=== PATIENT | male | born 1955 | race Caucasian/White ===

== ENCOUNTER → 2021-04-21 12:39 | Outpatient (BNVA) | payer MEDICARE, SELFPAY | PROVIDERS: Visit Provider Surgery | DX: K42.9 Umbilical hernia without obstruction or gangrene (principal); Z20.822 Contact with and (suspected) exposure to COVID-19 | CPT/HCPCS: 87635 ==

== ENCOUNTER 2021-04-25 07:40 | Day surgery (SDC) | payer MEDICARE, SELFPAY ==
[2021-04-24 16:12] VITALS: BMI 37.8
[2021-04-25] VITALS (16 sets, daily range): BP systolic 109–156; BP diastolic 60–84; PULSE 85–97; RESP 6–22; TEMP 36.5–37.2; O2SAT 90–100
[2021-04-25] MEDS: sodium chloride 0.9% 1,000 ML 30 ML IV (08:13)
[2021-04-25] MEDS: acetaminophen 1,000 MG/100 ML PIGGYBACK 400 MG IV (08:14)
[2021-04-25] MEDS: heparin 5,000 unit/mL INJ 1 mL 3000 UNIT SUBCUT (08:18)
[2021-04-25 08:25] LABS: Glucose Point of Care 105 mg/dL (70-110)
--- NOTE | 2021-04-25 11:01 | W.PM.OPSUD ---
Surgery/Procedure H&P Update DATE OF PROCEDURE: April 25, 2021 DATE H&P PERFORMED: 04/03/21 H&P UPDATE INFORMATION: I have reviewed H&P completed within last 30 days, I have examined patient prior to procedure and Changes to prior documentation as noted here CHANGES TO PREVIOUS DOCUMENTATION: We will plan to proceed with open umbilical hernia repair with possible mesh placement giving the fact that the cystic lesion likely attached to the bellybutton hernia the hernia defect is not large. Patient agreed on the plan of care PREOP DIAGNOSIS: Umbilical hernia PRIMARY INDICATION FOR PROCEDURE: The same PLANNED PROCEDURE: Operation Date: 04/25/21 09:00 Proposed Procedures p Laparoscopic poss Open Umbilical Hernia Repair w/ poss Mesh [id number] K42.9(Not Applicable) - Colin Snow MD
--- NOTE | 2021-04-25 12:45 | ANES.PREANE2 ---
Pre-Anesthetic Assessment Pre-Anesthetic Assessment: Height/Weight: Height 1.78 m Weight 119.748 kg Temp Pulse Resp BP Pulse Ox 97.7 F 85 18 137/72 95 04/25/21 07:54 04/25/21 07:54 04/25/21 07:54 04/25/21 07:54 04/25/21 07:54 Preop Diagnosis: Umbilical hernia Proposed Procedure: Operation Date: 04/25/21 09:00 Proposed Procedures p Laparoscopic poss Open Umbilical Hernia Repair w/ poss Mesh [id number] K42.9(Not Applicable) - Colin Snow MD Was Beta Sandhya taken within 24 hours: N/A Was Clonidine taken within 24 hours: N/A Last intake: Intake Last Liquid Date 04/24/21 Last Liquid Time 22:00 Last Solid Date 04/24/21 Last Solid Time 18:00 Social: Social History: No alcohol and No tobacco Exam: Pre-Anes Outpt Exam: alert, oriented x 3, clear to auscultation bilaterally and regular rate & rhythm Airway: Submandibular: WNL Cervical ROM: WNL Dentition: Chipped and False (upper) CV/HEM: CV/HEM: Arrythmia and HTN GI: GI: GERD Metabolic: Metabolic: DM, Hyperlipidemia and Morbid obesity Anesthetic Plan: ASA status: 3 Anesthesia: General Meds/Allergies Current Medications: Current Medications Generic Name Dose Route Start Last Admin Trade Name Freq PRN Reason Stop Dose Admin Sodium Chloride 1,000 mls @ 30 ml s/hr 04/25/21 08:00 04/25/21 08:13 Sodium Chloride 0.9% IV 04/26/21 07:59 30 mls/hr .Q24H ENMA Administration PFSH Anesthesia PFSH: Family History Mother Diabetes Father Cancer Social History Smoking and tobacco status: former smoker Data Anesthesia Other Labs: Laboratory Results - last 48 hr 04/25/21 08:20 POC Glucose 105 Cardiac Studies: No Data to Display
[2021-04-25] MEDS: clindamycin 900 MG/50 ML PREMIX 100 MG IV (13:02)
[2021-04-25] MEDS: lidocaine 2% INJ 20 mL INJECTION (13:05)
--- NOTE | 2021-04-25 13:27 | P.OP_ITS ---
Operative Report Date of procedure: April 25, 2021 Pre-op Diagnosis: Umbilical hernia Post-op diagnosis: same Post-op Findings: Incarcerated umbilical hernia and presence of umbilical cyst Procedure Done: 1-Open umbilical hernia repair primarily 2-Excision of Intraabdominal umbilical ATTACHED cyst about 2 x 2 centimeters with serous fluid Specimens removed/disposition: Umbilical hernia sac and contents Umbilical/abdominal cyst attached to the umbilical hernia 2 x 2 centimeter Surgeon: Colin Snow Air Conditioning Sheet Metal Installer: Surgical techimtiaz Cortez LG and Aylin Circulating nurse Erin Anesthesia: General (GETA METAL DEALER Ash) Estimated blood loss (mL): 10 IV fluids (mL): 1,000 Condition: stable Disposition: same day Procedure: Patient was identified in holding area and the site of the hernia was marked by me ,Patient was brought then to the operating room, general endotracheal anesthesia was administered by the anesthesia provider.prophylactic IV antibiotics were given per protocol Timeout was done verifying the patient's name/date of /planned procedure and destination after the procedure, all were in agreement. SCDs confirmed to be functioning, preoperative antibiotics administered per protocol, and beta roberto protocol was confirmed. Patient was secured to the OR table and all pressure points were padded.Prep and drape of the abdomen was done under the usual sterile technique. I started by infraumbilical skin incision. I was able to identify the incarcerated umbilical hernia, dissection was carried all the way down to the fascia, hernia sac was then opened and the sac was excised in addition to excess omental tissues. Tissues excise sent for permanent pathology. Noticed to have a cyst within the omental tissues about 2 x 2 centimeter at have serous fluid within. I dissected separately and sent it out for permanent pathology,the remaining of the omentum was dropped inside the abdominal cavity. I was able to free the overlying fat on top of the fascia, facilitate primary closure At that point the fascial defect was about one and a half inches in diameter, after freeing all the adhesions, under direct visualization I was able to use #1 PDS to repair the defect primarily, as an interrupted [id number] sutures, thorough irrigation of the wound was then achieved and hemostasis. I elected not to put any mesh at this time concerning for potential infection of the associated cyst. Copious and thorough irrigation was done. Following that 2-0 Vicryl was used to deep dermal interrupted stitches,then 4-0 Monocryl was used for subcuticular closure of the skin incision. Lidocaine 2% was used for local infiltration to help postoperative pain.Dermabond was then applied,followed by an abdominal binder. Counts of sponges,needles and instruments were completed at the end of the procedure Patient tolerated the procedure well and was taken to the recovery area in stable condition I was present for the whole entire procedure
--- NOTE | 2021-04-25 13:45 | PM.PACU ---
Documented by User: Napoleon Wilkerson CRNA 04/25/21 13:45 PACU note PACU note: VSS, Good respiratory effort, report to ASSISTANT IN NURSING Post-Anesthesia Exam: awake
[2021-04-25] MEDS: fentaNYL 50 mcg/mL INJ 2mL IVP (14:02)
--- NOTE | 2021-04-25 14:34 | SUR.PHASEI ---
1336 PT TO PACU SLEEPY WITH WEAK RESP EFFOT, GULPING RESP MANULAL ASSIST TO AIRWAY, PT SATS IN 70'S PT BAGGED BY NAHUM HOLDEN SATS QUICKLY UP TO 90% SEE SUGAMADEX GVIEN IVP BY TECHNICAL TRAINING COORDINATOR. 1426 PT AWAKE ALERT DENIES PAIN AND VSS PT REQUESTS SODA AND CRACKERS, VSS PT TO OPS.
--- NOTE | 2021-04-25 14:42 | ANE.PACU2 ---
Inpatient post-anesthesia follow up: Airway intact: Yes Vital signs: Temperature 98.1 F Pulse Rate 91 Respiratory Rate 18 Blood Pressure 123/60 Pulse Oximetry 94 Oxygen Delivery Me thod Nasal Cannula Oxygen Flow Rate 2 Fraction of Inspir ed Oxygen Hydration adequate: Yes Nausea and vomiting: No Pain level: 2 Mental status: Baseline
[2021-04-25] MEDS: oxyCODONE-APAP 5-325 mg Tablet 1 TAB PO (15:01)
== END 2021-04-25 15:30 | disposition home or self-care (01) ==
PROVIDERS: PCP Nurse Practitioner Family; Visit Provider Surgery
PROC: 0WQF4ZZ Repair Abdominal Wall, Percutaneous Endoscopic Approach (ICD-10-PCS; CPT 22902; principal; 2021-04-25 08:50)
DX: K42.0 Umbilical hernia with obstruction, without gangrene (principal); R19.05 Periumbilic swelling, mass or lump; I10 Essential (primary) hypertension; Z87.891 Personal history of nicotine dependence; E78.5 Hyperlipidemia, unspecified
CPT/HCPCS: 22902; 49587; 36416; 82962; 88302; 88304; J1100; J1644; J2405; J2704; J2710; J3010; J3490; J7030

== ENCOUNTER → 2021-07-03 14:40 | Outpatient (BNVA) | payer MEDICARE, SELFPAY | PROVIDERS: PCP Nurse Practitioner Family; Visit Provider Family Medicine | DX: Z13.220 Encounter for screening for lipoid disorders; Z13.6 Encounter for screening for cardiovascular disorders; E11.9 Type 2 diabetes mellitus without complications; I10 Essential (primary) hypertension; F32.A Depression, unspecified; J44.9 Chronic obstructive pulmonary disease, unspecified | CPT/HCPCS: 80053; 80061; 83036; 85025 ==

== ENCOUNTER 2021-09-05 17:28 | Observation (INO) | payer MEDICARE, SELFPAY ==
[2021-09-05 17:39] VITALS: BP 158/98; PULSE 86; RESP 22; TEMP 36.6; O2SAT 98; BMI 34.4
--- NOTE | 2021-09-05 19:12 | CTR_ITS ---
PROCEDURE INFORMATION: Exam: CT Abdomen And Pelvis With Contrast Exam date and time: 09/05/2021 8:22 PM Age: 65 years old Clinical indication: Abdominal pain; Prior surgery; Surgery date: 6+ months; Surgery type: Hernia repair/cyst removal; Patient HX: Epigastric pain and burning x2 weeks; Additional info: Abd pain TECHNIQUE: Imaging protocol: Computed tomography of the abdomen and pelvis with contrast. Radiation optimization: All CT scans at this facility use at least one of these dose optimization techniques: automated exposure control; mA and/or kV adjustment per patient size (includes targeted exams where dose is matched to clinical indication); or iterative reconstruction. Contrast material: OMNI 300; Contrast volume: 95 ml; Contrast route: INTRAVENOUS (IV); COMPARISON: OT CT abdomen pelvis wo con [id number] 03/14/2021 2:15 PM RADIATION DOSE METRICS: Total DLP (mGy-cm): 1751.33 FINDINGS: Liver: Normal. No mass. Gallbladder and bile ducts: Gallbladder is somewhat prominent, ultrasound could further evaluate this as clinically indicated. Pancreas: Normal. No ductal dilation. Spleen: Normal. No splenomegaly. Adrenal glands: Normal. No mass. Kidneys and ureters: Left kidney cyst, negative for follow-up advised. Stomach and bowel: Constipation. Appendix: No evidence of appendicitis. Intraperitoneal space: Unremarkable. No free air. No significant fluid collection. Vasculature: Unremarkable. No abdominal aortic aneurysm. Lymph nodes: Unremarkable. No enlarged lymph nodes. Urinary bladder: Unremarkable as visualized. Reproductive: Unremarkable as visualized. Bones/joints: Unremarkable. No acute fracture. Soft tissues: Unremarkable. CT/CT abdomen pelvis w con* [id number] IMPRESSION: 1. Negative for acute inflammatory process in the abdomen or pelvis. 2. Gallbladder is somewhat prominent, ultrasound could further evaluate this as clinically indicated. 3. Constipation. 4. Left kidney cyst, negative for follow-up advised.
--- NOTE | 2021-09-05 19:16 | ECG_ITS ---
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 Measurements Intervals [place] Rate: 70 P: 63 [place]: 181 QRS: 58 QRSD: 101 T: 72 QT: 400 QTc: 434 Interpretive Statements SINUS RHYTHM No previous ECG available for comparison Electronically Signed On 09-06-2021 17:05:11 CDT by Canelo Mckay M.D. [id number]
--- NOTE | 2021-09-05 19:23 | W.ED.ABDPA2 ---
HPI - Abdominal Pain General: Chief Complaint: Abdominal Pain Stated Complaint: upper stomach burning pain Time Seen by Provider: 09/05/21 19:11 Source: patient Mode of arrival: ambulatory Limitations: no limitations History of Present Illness: 65-year-old male states he been having abdominal pain since last night. He states pain sharp in nature in his upper abdomen along with nausea states he had decreased appetite. States that it is worse with tenderness improved with rest. No diarrhea no chest pain. Associated Symptoms: Reports nausea and vomiting; Denies chills, dysuria and fever(s) Review of Systems Const: Denies: fever(s), chills, body aches or change in appetite Eyes: Denies: blurry vision or eye discomfort ENMT: Denies: throat pain or dental pain Card: Denies: chest pain Resp: Denies: dyspnea GI: Reports: abdominal pain, nausea and vomiting : Denies: dysuria Musc: Denies: neck pain or back pain Skin/Breast: Denies: rash Neuro: Denies: headache(s) Psych: Denies: depression Tc/Lymph: Denies: easy bruising All/Imm: Denies: urticaria PFSH ED PFSH: Medical History Umbilical cyst Umbilical hernia Surgical History Hx of carpal tunnel repair bilateral Hx of fracture of leg Hx of hernia repair Family History Mother Diabetes Father Cancer Social History Smoking and tobacco status: former smoker Physical Exam Const: COMMON NORMALS: no acute distress, patient oriented x3 and healthy appearing HENMT: COMMON NORMALS: normocephalic and atraumatic HEAD & SCALP: normocephalic and atraumatic Eye: COMMON NORMALS: Equal, round and reactive pupils present and EOMs intact bilaterally PUPIL: Yes Equal, round and reactive pupils present Neck/C-Spine: COMMON NORMALS: full ROM and supple Chest: COMMONS NORMALS: normal inspection of the chest and normal palpation of entire chest wall Resp: COMMON NORMALS: normal respiratory effort, No retractions, No use of accessory muscles and clear to auscultation bilaterally AUSCULTATION: clear to auscultation bilaterally Cardio: COMMON NORMALS: regular rate, regular rhythm and No murmurs present (Cardio) RATE: regular rate RHYTHM: regular rhythm GI: COMMON NORMALS: Normal to inspection, nondistended, normoactive bowel sounds present, Soft to palpation and no masses PALPATION: Yes Soft to palpation OTHER: Tenderness to upper abdomen Extremity: COMMON NORMALS: normal to inspection and full ROM Neuro: COMMON NORMALS: patient oriented x3, moves all extremities and no focal motor deficits Psych: COMMON NORMALS: mental status grossly normal, Normal thought process present and cooperative THOUGHT PROCESS: Normal thought process present Skin: COMMON NORMALS: no rashes or lesions noted and no wounds GENERAL SKIN EXAM: no rashes or lesions noted Course Vital Signs: Vital signs: Vital Signs Temperature 97.9 F 09/05/21 17:39 Pulse Rate 76 09/05/21 19:43 Respiratory Rate 17 09/05/21 21:20 Blood Pressure 93/50 09/05/21 19:43 Pulse Oximetry 92 09/05/21 21:20 MDM - Abdominal Pain Medical Decision Making Patient presents with abdominal pain he does have tenderness in his right upper quadrant CT showed enlarged gallbladder he does have a elevated white count to concern for a cholecystitis he does any chest pain or shortness of breath even after pain meds he still is having tenderness on exam I spoke to surgeon will admit for IV antibiotics and likely surgery for his cholecystitis. Lab Data : 09/05/21 19:37 09/05/21 19:37 Labs/Radiology: Radiology Impressions Abdomen/Pelvis CT 09/05/21 19:12 IMPRESSION: 1. Negative for acute inflammatory process in the abdomen or pelvis. 2. Gallbladder is somewhat prominent, ultrasound could further evaluate this as clinically indicated. 3. Constipation. 4. Left kidney cyst, negative for follow-up advised. Laboratory Results WBC 15.8 10^3/uL (4.0-10.0) H 09/05/21 19:37 RBC 5.03 10^6/uL (4.1-5.3) 09/05/21 19:37 Hgb 14.5 g/dL (11.7-16.6) 09/05/21 19:37 Hct 45.1 % (42.0-52.0) 09/05/21 19:37 MCV 89.7 fl (80-94) 09/05/21 19:37 MCH 28.8 pg (28.0-34.0) 09/05/21 19:37 MCHC 32.2 g/dL (30.0-36.0) 09/05/21 19:37 RDW 13.6 % (12.1-15.1) 09/05/21 19:37 Plt Count 324 10^3/cmm (130-400) 09/05/21 19:37 MPV 9.8 fL (7.4-10.4) 09/05/21 19:37 Neut % (Auto) 85.0 % 09/05/21 19:37 Lymph % (Auto) 7.1 % 09/05/21 19:37 [place] % (Auto) 5.1 % 09/05/21 19:37 Eos % (Auto) 1.8 % 09/05/21 19:37 Baso % (Auto) 0.4 % 09/05/21 19:37 Neut # (Auto) 13.46 10^3/uL (1.8-7.7) H 09/05/21 19:37 Lymph # (Auto) 1.1 10^3/uL (0.8-4.8) 09/05/21 19:37 [place] # (Auto) 0.8 10^3/uL (0.2-0.9) 09/05/21 19:37 Eos # (Auto) 0.3 10^3/uL (0.0-0.8) 09/05/21 19:37 Baso # (Auto) 0.1 10^3/uL (0.0-0.1) 09/05/21 19:37 Nucleated RBC % (auto) 0 % 09/05/21 19:37 Nucleated RBCs # 0.0 /100WBC 09/05/21 19:37 Sodium 135 mmol/L (136-145) L 09/05/21 19:37 Potassium 4.5 mmol/L (3.5-5.1) 09/05/21 19:37 Chloride 96 mmol/L (98-107) L 09/05/21 19:37 Carbon Dioxide 26 mmol/L (22-29) 09/05/21 19:37 Anion Gap 17.5 (5-19) 09/05/21 19:37 BUN 15 mg/dL (8-23) 09/05/21 19:37 Creatinine 0.9 mg/dL (0.7-1.2) 09/05/21 19:37 GFR Calculation 85.2 mL/min (90-130) L 09/05/21 19:37 Glucose 163 mg/dL (65-115) H 09/05/21 19:37 Calculated Osmolality 284 mOsm/kg (285-295) L 09/05/21 19:37 Calcium 10.1 mg/dL (8.5-10.5) 09/05/21 19:37 Total Bilirubin 0.3 mg/dL (0.15-1.2) 09/05/21 19:37 AST 19 U/L (0-40) 09/05/21 19:37 ALT 19 U/L (0-41) 09/05/21 19:37 Alkaline Phosphatase 87 IU/L (40-130) 09/05/21 19:37 Total Protein 7.7 g/dL (6.6-8.7) 09/05/21 19:37 Albumin 4.6 g/dL (3.5-5.2) 09/05/21 19:37 Globulin 3.1 g/dL (1.3-4.6) 09/05/21 19:37 Lipase 23 U/L (13-60) 09/05/21 19:37 Urine Color Yellow (Yellow) 09/05/21 19:37 Urine Appearance Clear (CLEAR) 09/05/21 19:37 Urine pH 5 (5-7) 09/05/21 19:37 Ur Specific [place] 1.010 (1.005-1.030) 09/05/21 19:37 Urine Protein Neg (Negative) 09/05/21 19:37 Urine Glucose (UA) Norm (Normal) 09/05/21 19:37 Urine Ketones Negative (Negative) 09/05/21 19:37 Urine Blood Neg (Negative) 09/05/21 19:37 Urine Nitrate Negative (Negative) 09/05/21 19:37 Urine Bilirubin Neg (Negative) 09/05/21 19:37 Urine Urobilinogen Neg mg/dL (Negative) 09/05/21 19:37 Ur Leukocyte Esterase Negative (Negative) 09/05/21 19:37 EKG Data EKG 1: I personally reviewed and interpreted this EKG as follows: EKG interpretation date: 09/05/21 EKG interpretation time: 20:03 Interpretation: nsr hr [address] or t wave abnormalities qrs 101 qtc 421 Discharge Plan Discharge Patient Disposition: Admitted As Inpatient Clinical Impression: Cholecystitis Condition: Stable Coding Level of Care Code ED Sales Consultant for Chg Fwd Exam Comprehensive
[2021-09-05 19:42] VITALS: RESP 17; O2SAT 95
[2021-09-05] MEDS: morphine 4 mg/mL SDV 1 mL IVP (19:42)
[2021-09-05] MEDS: ondansetron 2 mg/ML SDV 2 mL 4 MG IVP (19:42)
[2021-09-05] MEDS: sodium chloride 0.9% 1,000 ML 999 ML IV (19:42)
[2021-09-05 19:43] VITALS: BP 93/50; PULSE 76; RESP 17; O2SAT 97
[2021-09-05 19:46] LABS: Add Urine Microscopic? NO; Charge for UA Resulting for Rev
[2021-09-05 19:48] LABS: Basophils # 0.1 10^3/uL (0.0-0.1); Basophils % 0.4 %; Eosinophils # 0.3 10^3/uL (0.0-0.8); Eosinophils % 1.8 %; Hematocrit 45.1 % (42.0-52.0); Hemoglobin 14.5 g/dL (11.7-16.6); Lymphocytes # 1.1 10^3/uL (0.8-4.8); Lymphocytes % 7.1 %; Mean Corpuscular HGB Conc 32.2 g/dL (30.0-36.0); Mean Corpuscular Hemoglobin 28.8 pg (28.0-34.0); Mean Corpuscular Volume 89.7 fl (80-94); Mean Platelet Volume 9.8 fL (7.4-10.4); Monocytes # 0.8 10^3/uL (0.2-0.9); Monocytes % 5.1 %; Neutrophils # 13.46 10^3/uL (1.8-7.7); Nucleated Red Blood Cells % 0 %; Platelet Count 324 10^3/cmm (130-400); Red Blood Count 5.03 10^6/uL (4.1-5.3); Red Cell Distribution Width 13.6 % (12.1-15.1); White Blood Count 15.8 10^3/uL (4.0-10.0)
[2021-09-05 19:52] LABS: Glucose Urine UA Norm (Normal); Protein Urine Neg (Negative); Urine Appearance Clear (CLEAR); Urine Color Yellow (Yellow); pH Urine 5 (5-7)
[2021-09-05 19:53] LABS: Bilirubin Urine Neg (Negative); Blood Urine Neg (Negative); Ketones Urine Negative (Negative); Leukocyte Esterase Urine Negative (Negative); Nitrate Urine Negative (Negative); Urobilinogen Urine Neg (Negative)
[2021-09-05 20:07] LABS: Alanine Aminotransferase 19 U/L (0-41); Albumin Level 4.6 g/dL (3.5-5.2); Alkaline Phosphatase 87 IU/L (40-130); Anion Gap 17.5 (5-19); Aspartate Amino Transferase 19 U/L (0-40); Blood Urea Nitrogen 15 mg/dL (8-23); Calcium 10.1 mg/dL (8.5-10.5); Carbon Dioxide 26 mmol/L (22-29); Chloride 96 mmol/L (98-107); Globulin 3.1 g/dL (1.3-4.6); Glomerular Filtration Rate 85.2 mL/min (90-130); Glucose 163 mg/dL (65-115); Lipase 23 U/L (13-60); Osmolality Calculated 284 mOsm/kg (285-295); Potassium 4.5 mmol/L (3.5-5.1); Sodium 135 mmol/L (136-145); Total Bilirubin 0.3 mg/dL (0.15-1.2); Total Protein 7.7 g/dL (6.6-8.7)
[2021-09-05] MEDS: iohexol 300 mg/mL 100 mL Btl IV (20:22)
--- NOTE | 2021-09-05 21:15 | USR_ITS ---
PROCEDURE INFORMATION: Exam: US Abdomen, Limited; Right Upper Quadrant Exam date and time: 09/05/2021 9:55 PM Age: 65 years old Clinical indication: Abdominal pain; Generalized; Additional info: Abd pain TECHNIQUE: Imaging protocol: US abdomen. Real time ultrasound with image documentation. Limited exam focused on the right upper quadrant. COMPARISON: CT abdomen pelvis w con* [id number] 09/05/2021 8:22 PM FINDINGS: Liver: Essentially unremarkable liver, no focal abnormality. Gallbladder: Possibly some biliary sludge within the gallbladder, although this could represent artifact. No definite cholelithiasis/shadowing gallstones. No gallbladder wall thickening or pericholecystic fluid. The gallbladder appears upper range of normal in size, with transverse diameter up to 3.8 cm. Technologist states patient was tender over the gallbladder region during scanning. Common bile duct: The common bile duct is not definitely visualized at this time. No obvious biliary tree dilation. Pancreas: Visible pancreas unremarkable. Much of the pancreas is obscured by bowel gas. Right kidney: Images of the right kidney show no hydronephrosis. US/US gall bladder [id number] IMPRESSION: 1. Possibly some biliary sludge within the gallbladder, although this could represent artifact. 2. No definite cholelithiasis/shadowing gallstones. 3. The gallbladder appears upper range of normal in size, details above. 4. The common bile duct is not definitely visualized at this time. No obvious biliary tree dilation. 5. Other details/findings discussed above.
[2021-09-05 21:20] VITALS: RESP 17; O2SAT 92
[2021-09-05] MEDS: HYDROmorphone 1 mg/mL INJ 1 mL IVP (21:20)
[2021-09-05 22:30] VITALS: BP 123/102; PULSE 94; RESP 17; O2SAT 93
[2021-09-05] MEDS: levofloxacin-dextrose 5 % 750 MG/150 ML PREMIX 100 MG IV (23:09)
[2021-09-05 23:27] VITALS: BP 131/71; PULSE 88; RESP 18; O2SAT 91
[2021-09-06 00:37] VITALS: BMI 37.5
[2021-09-06] MEDS: sodium chloride 0.9% 1,000 ML 75 ML IV (01:00)
[2021-09-06 01:02] VITALS: RESP 18
[2021-09-06] MEDS: morphine 4 mg/mL SDV 1 mL IVP (01:02)
[2021-09-06] MEDS: metroNIDAZOLE IV 500 MG/100 ML PREMIX 100 MG IV ×2 (01:03→08:38)
[2021-09-06] MEDS: morphine 4 mg/mL SDV 1 mL 3 MG IVP ×2 (03:45→08:35)
[2021-09-06 06:25] LABS: Glucose Point of Care 136 mg/dL (70-110)
[2021-09-06 08:35] VITALS: RESP 18; O2SAT 91
[2021-09-06 10:54] LABS: Glucose Point of Care 138 mg/dL (70-110)
--- NOTE | 2021-09-06 11:28 | P.ANESASSM_ITS ---
Pre-Anesthetic Assessment Height/Weight: Height 1.78 m Weight 118.478 kg Temp Pulse Resp BP Pulse Ox 97.9 F 88 18 131/71 91 09/05/21 17:39 09/05/21 23:27 09/06/21 08:35 09/05/21 23:27 09/06/21 08:35 Preop Diagnosis: cholelithiasis Operation Date: 09/06/21 12:55 Proposed Procedures p Laparoscopic Cholecystectomy(Not Applicable) - Gonzalo Alva MD Medications/Allergies Home Medications Medication Instructions Recorded Confirmed Last Taken Type aspirin 81 mg chewable tablet 81 mg PO DAILY 04/03/21 09/05/21 09/04/21 History hydrocodone 10 mg-acetaminophen 1 tab PO Q6H PRN 04/03/21 09/05/21 04/25/21 05:30 History 325 mg tablet polyethylene glycol 3350 17 gram 17 g PO DAILY 04/03/21 09/05/21 09/05/21 History oral powder packet lisinopril 30 mg tablet 30 mg PO DAILY 90 Days #90 tab 07/03/21 09/05/21 09/05/21 Rx metformin 500 mg tablet 500 mg PO DAILY 90 Days #90 tab 07/03/21 09/05/21 09/05/21 Rx omeprazole 40 mg capsule,delayed 40 mg PO DAILY 90 Days #90 cap 07/03/21 09/05/21 09/05/21 Rx release torsemide 20 mg tablet 20 mg PO DAILY 90 Days #90 tab 07/03/21 09/05/21 09/05/21 Rx lamotrigine 50 mg tablet,extended 50 mg PO BEDTIME 09/05/21 09/05/21 09/04/21 History release 24 hr lovastatin 20 mg tablet 20 mg PO BEDTIME 09/05/21 09/05/21 09/04/21 History potassium chloride 10 mEq 20 meq PO DAILY 09/05/21 09/05/21 09/05/21 History capsule,extended release Allergies Allergy/AdvReac Type Severity Reaction Status Date / Time adhesive tape Allergy hives Verified 09/05/21 17:44 Penicillins Allergy hives Verified 09/05/21 17:44 Current Medications Generic Name Dose Route Start Last Admin Trade Name Freq PRN Reason Stop Dose Admin Metronidazole 500 mg in 100 mls @ 100 mls/hr 09/05/21 22:45 09/06/21 10:28 Flagyl Iv IV Infused Q8H ENMA Infusion Protocol Sodium Chloride 1,000 mls @ 75 mls/hr 09/06/21 00:51 09/06/21 01:00 Sodium Chloride 0.9% IV 75 mls/hr .[id number] ENMA Administration Morphine Sulfate 3 mg 09/06/21 03:30 09/06/21 08:35 Morphine 4 Mg/Ml Sdv 1 Ml IVP 3 mg Q2H PRN Administration SEVERE PAIN PFSH Anesthesia Medical History Umbilical cyst Umbilical hernia Surgical History Hx of carpal tunnel repair bilateral Hx of fracture of leg Hx of hernia repair Family History Mother Diabetes Father Cancer Social History Smoking and tobacco status: former smoker Data Anesthesia : 09/05/21 19:37 09/05/21 19:37 Short CBC 09/05/21 Range/Units 19:37 WBC 15.8 H (4.0-10.0) 10^3/uL Hgb 14.5 (11.7-16.6) g/dL Hct 45.1 (42.0-52.0) % MCV 89.7 (80-94) fl Plt Count 324 (130-400) 10^3/cmm Neut % (Auto) 85.0 % Neut # (Auto) 13.46 H (1.8-7.7) 10^3/uL BMP 09/05/21 19:37 Sodium 135 L Potassium 4.5 Chloride 96 L Carbon Dioxide 26 BUN 15 Creatinine 0.9 Glucose 163 H Calcium 10.1 Liver Function 09/05/21 Range/Units 19:37 Total Bilirubin 0.3 (0.15-1.2) mg/dL AST 19 (0-40) U/L ALT 19 (0-41) U/L Alkaline Phosphatase 87 (40-130) IU/L Albumin 4.6 (3.5-5.2) g/dL Urine 09/05/21 Range/Units 19:37 Urine Color Yellow (Yellow) Urine Appearance Clear (CLEAR) Urine pH 5 (5-7) Ur Specific [place] 1.010 (1.005-1.030) Urine Protein Neg (Negative) Urine Glucose (UA) Norm (Normal) Urine Ketones Negative (Negative) Urine Nitrate Negative (Negative) Urine Bilirubin Neg (Negative) Ur Leukocyte Esterase Negative (Negative) Cardiac Studies: No Data to Display
--- NOTE | 2021-09-06 12:20 | PC.CHAP ---
Pastoral Care Encounter/Spiritual Assessment Type of Contact [] Declined an/sqq 89(v)15 sonar system journeyman visit [] Patient/Family/Request visit [] Outpatient visit [] Follow-up visit [] Physician referral [] Code/Alert [x] Routine visit [] Staff referral [] Actively dying [] Patient sleeping [] Family support [] [] Out of room [] Palliative care [] [] Receiving care in room [] Pre-surgical visit [] Trauma [] Long length of stay [] ICU visit [] Other: Relational/Emotional Strength x[] Patient feels connected with others/family/visitors/staff [] Distress [] Loneliness/isolation [] Abandonment Spirituality of Patient [x] Person of Ledy [] Attends Uatsdin of their Ledy [x] Believes in Prayer [] Reads Bible or Muslim materials [] There are Spiritual issues to be addressed 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 Interventions [x] Prayer [x] Active listening [] Non-anxious presence [xx] Spiritual/emotional support [] Crisis/trauma care [] Spiritual counseling [] Bereavement support [] Provided bereavement packet [] Provided Bible/devotional materials [] Provided toy/stuffed animal, coloring book to patient or family member [] Provided Communion [] Anointing/[place] [] Salvation [x] Completed spiritual assessment [] Other: Impact on Illness or Injury [] Angry [] Fearful [] Anxious [] Often cries [] Exhaustion [] Unable to work [] Unable to attend orthodoxy [] Unable to walk/stand [] Unable to read [] Unable to drive [] Unable to eat/drink [] Unable to sleep [] Unable to be with family [] Patient intubated [] Other: Summary Time spent with patient 10 min
--- NOTE | 2021-09-06 14:51 | P.SS_ITS ---
Short Stay Summary Providers Date of Admit/Discharge: 09/12/21 Attending Provider: Gonzalo Alva MD Chief Complaint: upper stomach burning pain HPI History of Present Illness Shakeel Macias is a 65 year old male who presented to the ER with upper abdominal pain of 24 hours duration associated with nausea and loss of appetite. Patient denies any vomiting, fevers, chills, constipation or diarrhea. He was admitted to the hospital overnight due to concern for possible cholecystitis and was started on IV Zosyn. By following morning patient was feeling a lot better, his abdominal pain and nausea had resolved. He denies any hematemesis, melena or hematochezia. Review of Systems General: Reports: 10 or more systems reviewed and unremarkable except in HPI and below Home Meds/Allergies Home Medications and Allergies Home Medications Medication Instructions Recorded Confirmed Type aspirin 81 mg chewable tablet 81 mg PO DAILY 04/03/21 09/05/21 History hydrocodone 10 mg-acetaminophen 1 tab PO Q6H PRN 04/03/21 09/05/21 History 325 mg tablet polyethylene glycol 3350 17 gram 17 g PO DAILY 04/03/21 09/05/21 History oral powder packet lamotrigine 50 mg tablet,extended 50 mg PO BEDTIME 09/05/21 09/05/21 History release 24 hr lovastatin 20 mg tablet 20 mg PO BEDTIME 09/05/21 09/05/21 History potassium chloride 10 mEq 20 meq PO DAILY 09/05/21 09/05/21 History capsule,extended release Allergies Allergy/AdvReac Type Severity Reaction Status Date / Time adhesive tape Allergy hives Verified 09/05/21 17:44 Penicillins Allergy hives Verified 09/05/21 17:44 PFSH Acute PFSH: Surgical History (Updated 09/12/21 @ 16:02 by Gonzalo Alva MD) Hx of carpal tunnel repair bilateral Hx of fracture of leg Hx of hernia repair Umbilical Family History Mother Diabetes Father Cancer Social History Smoking and tobacco status: former smoker Vitals/I&O/Wt Last Vital Signs Temp 97.9 F 09/05/21 17:39 Pulse 88 09/05/21 23:27 Resp 18 09/06/21 08:35 BP 131/71 03/29/22 23:27 Pulse Ox 91 09/06/21 08:35 09/05/21 09/06/21 09/06/21 22:59 06:59 14:59 Intake Total 1250 / 1250 460 / 460 Balance 1250 / 1250 460 / 460 Weight last 48 hrs Weight 261 lb 3.2 oz Weight 240 lb Physical Exam Narrative: HEENT: Normocephalic Eye: Sclera /conjunctiva normal Respiratory and chest: Bilateral clear breath sounds on auscultation Cardiovascular: Normal S1 and S2 heart sounds Abdomen: Soft to palpation, mild epigastric tenderness Neurological: Oriented to place person and time Skin: Intact, no lesions appreciated on gross exam Hospital Course Hospital Course The patient is admitted to the hospital overnight and he was feeling better the following morning. He was not significantly tender on palpation and the imaging studies were equivocal. Discussed my concerns with the patient and he would like to go home and get worked up as an outpatient. Discharge Summary We will schedule an outpatient HIDA scan and follow-up in clinic SSS Data Data Completed and Pending: Completed Studies During Hospitalization Category Date Time Status CT abdomen pelvis w con* [id number] Urge nt Cat Scan 09/05/21 19:12 Completed US gall bladder 7 [id number] Urgent Ultrasound 09/05/21 21:15 Completed Addt'l Data from Hospital Stay: CT abdomen pelvis on 09/05/2021 showed prominent gallbladder, constipation but no evidence of inflammatory process.Ultrasound of the gallbladder showed some biliary sludge but no evidence of gallstones or choledocholithiasis. Procedures Performed: None Discharge Plan Discharge Patient Disposition: Home Condition: Stable Prescriptions: New levofloxacin 750 mg tablet 750 mg PO DAILY 7 Days 0RF Continued hydrocodone-acetaminophen 10-325 mg tablet 1 tab PO Q6H PRN (Reason: Pain, Severe) 0RF aspirin 81 mg tablet,chewable 81 mg PO DAILY 0RF Hold Instructions: Resume on 04/29/21. polyethylene glycol 3350 17 gram powder in packet 17 g PO DAILY 0RF lisinopril 30 mg tablet 30 mg PO DAILY 90 Days Qty: 90 1RF metformin 500 mg tablet 500 mg PO DAILY 90 Days Qty: 90 1RF torsemide 20 mg tablet 20 mg PO DAILY 90 Days Qty: 90 1RF omeprazole 40 mg capsule,delayed release(DR/EC) 40 mg PO DAILY 90 Days Qty: 90 1RF potassium chloride 10 mEq capsule, extended release 20 meq PO DAILY 0RF lovastatin 20 mg tablet 20 mg PO BEDTIME 0RF lamotrigine 50 mg tablet extended release 24hr 50 mg PO BEDTIME 0RF Rx Instructions: ONE (1) TAB ONLY at bedtime Discharge Orders: Discharge Order (Routine); Ordered 09/06/21 Ordered By: Gonzalo Alva Referrals: Gonzalo Alva MD [Physician] - 09/19/21 8:30 am (After HIDA scan which will be scheduled by my office) Discharge Diet: Advance as tolerated Discharge Activity: Resume usual activity Patient Instructions: Cholecystitis (ED), Laparoscopic Cholecystectomy (GEN), Opioid Safety Attestations Medical Necessity Statement*: Upper abdominal pain improved and was subsequently discharged home Time Spent in Patient Care*: less than 30 min Specific Discharge Activities: Specific discharge activities: educating patient Quality Metrics Clinical Quality Measures: [ No reported AMI, CVA or VTE this stay ] Coding Level of Care Code Acute 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
[2021-09-06 15:19] VITALS: RESP 18; O2SAT 91
== END 2021-09-06 14:00 | disposition home or self-care (01) ==
LOC: ER 23:01 → MEDSURG 23:38
PROVIDERS: Emergency Medicine; Admitting Provider Surgery; Emergency Provider Emergency Medicine; Visit Provider Surgery
DX: R10.10 Upper abdominal pain, unspecified (principal); R11.0 Nausea; Z79.82 Long term (current) use of aspirin; Z87.891 Personal history of nicotine dependence
CPT/HCPCS: 36416; 74177; 76705; 80053; 81003; 82962; 83690; 85025; 93005; 96365; 96366; 96367; 96375; 99285; G0378; J1170; J1956; J2270; J2405; J7030; Q9967; S0030

== ENCOUNTER → 2022-01-09 11:16 | Outpatient (BNVA) | payer OTHER, SELFPAY | PROVIDERS: PCP Family Medicine; Visit Provider Family Medicine | DX: E11.9 Type 2 diabetes mellitus without complications (principal); I10 Essential (primary) hypertension; R60.0 Localized edema; E87.6 Hypokalemia; K59.00 Constipation, unspecified; K21.9 Gastro-esophageal reflux disease without esophagitis; F51.05 Insomnia due to other mental disorder; F99 Mental disorder, not otherwise specified; F41.1 Generalized anxiety disorder; F33.1 Major depressive disorder, recurrent, moderate; G25.81 Restless legs syndrome; M77.8 Other enthesopathies, not elsewhere classified; Z23 Encounter for immunization | CPT/HCPCS: 80048; 83036; 83735 ==

== ENCOUNTER → 2022-04-05 10:21 | Outpatient (BNVA) | payer OTHER, SELFPAY | PROVIDERS: PCP Family Medicine; Visit Provider Family Medicine | DX: K59.00 Constipation, unspecified (principal); I10 Essential (primary) hypertension; E11.9 Type 2 diabetes mellitus without complications; E87.6 Hypokalemia; F41.1 Generalized anxiety disorder; K59.04 Chronic idiopathic constipation; Z53.20 Procedure and treatment not carried out because of patient's decision for unspecified reasons | CPT/HCPCS: 80053; 83036; 85025 ==

== ENCOUNTER → 2022-09-04 10:31 | Outpatient (BNVA) | payer MEDICARE, SELFPAY | PROVIDERS: PCP Family Medicine; Visit Provider Family Medicine | DX: F41.1 Generalized anxiety disorder (principal); F33.1 Major depressive disorder, recurrent, moderate; F51.05 Insomnia due to other mental disorder; F99 Mental disorder, not otherwise specified; I10 Essential (primary) hypertension; E11.9 Type 2 diabetes mellitus without complications; K21.9 Gastro-esophageal reflux disease without esophagitis; E87.6 Hypokalemia; G25.81 Restless legs syndrome; R60.0 Localized edema; K59.00 Constipation, unspecified; Z13.220 Encounter for screening for lipoid disorders; Z13.6 Encounter for screening for cardiovascular disorders; M54.50 Low back pain, unspecified | CPT/HCPCS: 72100; 80053; 80061; 83036 ==

== ENCOUNTER → 2022-11-27 14:01 | Outpatient (BNVA) | payer MEDICARE, SELFPAY | PROVIDERS: PCP Family Medicine; Visit Provider Family Medicine | DX: E11.9 Type 2 diabetes mellitus without complications (principal); J32.9 Chronic sinusitis, unspecified; I10 Essential (primary) hypertension; J32.1 Chronic frontal sinusitis; F33.1 Major depressive disorder, recurrent, moderate; F41.1 Generalized anxiety disorder | CPT/HCPCS: 80053; 83036; 83735 ==

== ENCOUNTER → 2023-02-20 14:17 | Outpatient (BNVA) | payer MEDICARE, SELFPAY | PROVIDERS: PCP Family Medicine; Visit Provider Family Medicine | DX: I10 Essential (primary) hypertension (principal); R60.0 Localized edema; G25.81 Restless legs syndrome; E87.6 Hypokalemia; K21.9 Gastro-esophageal reflux disease without esophagitis; E11.9 Type 2 diabetes mellitus without complications; F51.05 Insomnia due to other mental disorder; F99 Mental disorder, not otherwise specified; F33.1 Major depressive disorder, recurrent, moderate; F41.1 Generalized anxiety disorder; M54.50 Low back pain, unspecified; M25.562 Pain in left knee | CPT/HCPCS: 73562; 80048; 83036 ==

== ENCOUNTER 2023-02-28 15:50 | Outpatient (CLI) | payer MEDICARE, SELFPAY | END 2023-02-28 15:51 | disposition home or self-care (01) | LOC: SPT 15:50 | PROVIDERS: PCP Family Medicine; Visit Provider Physician Assistant | DX: Z46.89 Encounter for fitting and adjustment of other specified devices (principal); M17.12 Unilateral primary osteoarthritis, left knee | CPT/HCPCS: 97760; 99213; L1851 ==

== ENCOUNTER → 2023-06-06 14:21 | Outpatient (BNVA) | payer MEDICARE, SELFPAY | PROVIDERS: PCP Family Medicine; Visit Provider Physician Assistant | DX: M17.12 Unilateral primary osteoarthritis, left knee (principal) | CPT/HCPCS: 20610; 99213; J3301 ==

== ENCOUNTER → 2023-08-06 13:53 | Outpatient (BNVA) | payer MEDICARE, SELFPAY | PROVIDERS: PCP Family Medicine; Visit Provider Family Medicine | DX: Z12.5 Encounter for screening for malignant neoplasm of prostate (principal); I10 Essential (primary) hypertension; E11.9 Type 2 diabetes mellitus without complications | CPT/HCPCS: 80053; 80061; 83036; G0103 ==

== ENCOUNTER → 2023-10-11 08:22 | Outpatient (BNVA) | payer MEDICARE, SELFPAY | PROVIDERS: PCP Family Medicine; Visit Provider Physician Assistant | DX: M17.12 Unilateral primary osteoarthritis, left knee (principal) | CPT/HCPCS: 99213 ==

== ENCOUNTER → 2023-11-08 08:23 | Outpatient (BNVA) | payer MEDICARE, SELFPAY | PROVIDERS: PCP Family Medicine; Visit Provider Physician Assistant | DX: M17.12 Unilateral primary osteoarthritis, left knee (principal) | CPT/HCPCS: 20610; 99213; J7318 ==

== ENCOUNTER → 2024-02-26 11:08 | Outpatient (BNVA) | payer MEDICARE, SELFPAY | PROVIDERS: PCP Family Medicine; Visit Provider Family Medicine | DX: I10 Essential (primary) hypertension (principal); E11.9 Type 2 diabetes mellitus without complications | CPT/HCPCS: 80053; 83036 ==

== ENCOUNTER → 2024-02-27 08:44 | Outpatient (BNVA) | payer MEDICARE, SELFPAY | PROVIDERS: PCP Family Medicine; Visit Provider Nurse Practitioner | DX: Z79.899 Other long term (current) drug therapy (principal); F33.0 Major depressive disorder, recurrent, mild | CPT/HCPCS: 80061 ==

== ENCOUNTER → 2024-06-18 14:54 | Outpatient (BNVA) | payer MEDICARE, SELFPAY ==
[2024-03-05 13:00] VITALS: BP 149/86; BMI 38.0
== END ==
PROVIDERS: PCP Family Medicine; Visit Provider Physician Assistant
DX: M17.12 Unilateral primary osteoarthritis, left knee (principal); Z01.818 Encounter for other preprocedural examination
CPT/HCPCS: 73560; 73565; 99214

== ENCOUNTER → 2024-07-14 14:48 | Outpatient (BNVA) | payer MEDICARE, SELFPAY ==
[2024-03-05 13:00] VITALS: BP 149/86; BMI 38.0
== END ==
PROVIDERS: PCP Family Medicine; Visit Provider Physician Assistant
DX: Z01.818 Encounter for other preprocedural examination (principal)
CPT/HCPCS: 36415; 80053; 85025; 99213

== ENCOUNTER → 2024-07-21 08:03 | Outpatient (BNVA) | payer MEDICARE, SELFPAY ==
[2024-03-05 13:00] VITALS: BP 149/86; BMI 38.0
== END ==
PROVIDERS: PCP Family Medicine; Visit Provider Family Medicine
DX: Z01.818 Encounter for other preprocedural examination (principal)
CPT/HCPCS: 81003; 93005

== ENCOUNTER 2024-07-22 15:17 | Outpatient (CLI) | payer MEDICARE, SELFPAY ==
[2024-03-05 13:00] VITALS: BP 149/86; BMI 38.0
--- NOTE | 2024-07-22 15:30 | CT_ITS ---
WS: [id number] CT LEFT KNEE, NONCONTRAST [facility] TECHNIQUE: Noncontrast CT of the LEFT knee to include the LEFT hip and ankle. CLINICAL INFORMATION: LEFT KNEE DJD DLP: 974.[address] scans at [facility] use at least one of these dose optimization techniques: automated exposure control; mA and/or kV adjustment per patient size (includes targeted exams where dose is matched to clinical indication); or iterative reconstruction. FINDINGS: Advanced tricompartment arthritis with joint space narrowing worse in the medial joint compartment. Hypertrophic patella. Small suprapatellar effusion. Hypertrophic changes along the joint line. Vascular calcification. CT/CT knee LT [facility] [id number] IMPRESSION: Images obtained for preoperative purposes.
== END 2024-07-22 15:18 | disposition home or self-care (01) ==
LOC: RAD 15:19
PROVIDERS: PCP Family Medicine; Visit Provider Physician Assistant
DX: M17.12 Unilateral primary osteoarthritis, left knee (principal); R93.6 Abnormal findings on diagnostic imaging of limbs; M25.462 Effusion, left knee
CPT/HCPCS: 73700

== ENCOUNTER 2024-08-03 09:21 | Observation (INO) | payer MEDICARE, SELFPAY ==
[2024-03-05 13:00] VITALS: BP 149/86; BMI 38.0
[2024-08-03] VITALS (17 sets, daily range): BP systolic 94–146; BP diastolic 45–88; PULSE 68–90; RESP 16–20; TEMP 36.6–37.1; O2SAT 92–98; BMI 35.9
[2024-08-03] MEDS: ketorolac 30 mg/mL INJ IVP (06:30)
[2024-08-03] MEDS: acetaminophen 1,000 MG/100 ML PIGGYBACK 400 MG IV ×3 (06:31→21:43)
[2024-08-03] MEDS: sodium chloride 0.9% 1,000 ML 30 ML IV (06:31)
[2024-08-03] MEDS: scopolamine 1 mg PATCH 1 PATCH TRANSDERMA (06:32)
[2024-08-03 06:52] LABS: Basophils # 0.1 10^3/uL (0.0-0.1); Basophils % 0.6 %; Eosinophils # 0.7 10^3/uL (0.0-0.8); Eosinophils % 7.2 %; Hematocrit 40.5 % (37-53); Lymphocytes # 1.1 10^3/uL (0.8-4.8); Lymphocytes % 12.1 %; Mean Corpuscular HGB Conc 32.8 g/dL (30-55); Mean Corpuscular Hemoglobin 28.1 pg (27-33); Mean Corpuscular Volume 85.4 fl (82-101); Mean Platelet Volume 9.6 fL (7.4-10.4); Monocytes % 10.7 %; Neutrophils # 6.38 10^3/uL (1.8-7.7); Neutrophils % 68.8 %; Nucleated Red Blood Cells % 0 %; Platelet Count 195 10^3/cmm (157-399); Red Blood Count 4.74 10^6/uL (3.85-5.65); Red Cell Distribution Width 14.6 % (12.1-15.1); White Blood Count 9.28 10^3/uL (3.29-11.43)
--- NOTE | 2024-08-03 07:00 | P.HPUD_ITS ---
Surgery/Procedure H&P Update DATE OF PROCEDURE: August 03, 2024 DATE H&P PERFORMED: 07/14/24 H&P UPDATE INFORMATION: I have reviewed H&P completed within last 30 days, I have examined patient prior to procedure and No changes to prior documentation CHANGES TO PREVIOUS DOCUMENTATION: No change in overall health since last office visit ready to proceed with left total knee arthroplasty has been cleared by the preoperative clinic. Under stands all ins and outs procedure risk benefits complication alternatives surgery and through shared decision make elects proceed with surgical invention. All questions answered at this time. PREOP DIAGNOSIS: Left knee DJD PRIMARY INDICATION FOR PROCEDURE: Left knee DJD PLANNED PROCEDURE: Operation Date: 08/03/24 07:00 Proposed Procedures p Og Robot Total Knee Arthroplasty(Left) - Cb Vasquez DO
[2024-08-03 07:12] LABS: Blood Urea Nitrogen 21 mg/dL (8-23); Calcium 9.1 mg/dL (8.5-10.5); Carbon Dioxide 26 mmol/L (22-29); Chloride 99 mmol/L (98-107); Creatinine Clr Calc Pharmacy 101.8176; Glomerular Filtration Rate 84.4 mL/min (90-130); Glucose 145 mg/dL (65-115); Osmolality Calculated 288 mOsm/kg (285-295); Sodium 136 mmol/L (136-145)
--- NOTE | 2024-08-03 07:14 | ANES.PREANE2 ---
Pre-Anesthetic Assessment Height/Weight: Height 1.78 m Weight 113.398 kg Temp Pulse Resp BP Pulse Ox O2 Del Method 97.8 F 89 17 123/88 98 Room Air 08/03/24 06:12 08/03/24 06:12 08/03/24 06:12 08/03/24 06:12 08/03/24 06:12 08/03/24 06:12 Preop Diagnosis: Left knee DJD Operation Date: 08/03/24 07:00 Proposed Procedures p Og Robot Total Knee Arthroplasty(Left) - Cb Vasquez DO Familial anesthetic complications: None Was Beta Sandhya taken within 24 hours: N/A Was Clonidine taken within 24 hours: N/A Last intake: Intake Last Liquid Date 08/02/24 Last Liquid Time 18:30 Last Solid Date 08/02/24 Last Solid Time 18:30 Social No alcohol and No tobacco Exam alert, oriented x 3, clear to auscultation bilaterally and regular rate & rhythm Airway Mallampati: Class IV Dentition: other (missing) Comments: Comments: full qureshi CV/HEM Hypertension GI Gastroesophageal Reflux Disease Metabolic Diabetes Mellitus and Morbid Obesity Anesthetic Plan ASA status: 3 Anesthesia: Regional (specify below) Other: spinal + adductor Risk of > 500 ml blood loss (7ml/kg in children): Yes, adequate IV access and fluids planned Medications/Allergies Home Medications ?Medication ?Instructions ?Recorded ?Confirmed ?Last Taken ?Type aspirin 81 mg chewable tablet 81 mg PO DAILY 04/03/21 08/03/24 2 Weeks Ago History ~07/20/24 hydrocodone 10 mg-acetaminophen 1 tab PO Q6H PRN Pain, Severe 04/03/21 08/03/24 08/02/24 History 325 mg tablet polyethylene glycol 3350 17 17 g PO DAILY #850 grams 09/13/22 08/03/24 08/02/24 Rx gram/dose oral powder blood-glucose meter #1 ea 01/29/23 07/14/24 Unknown Rx lancets 32 gauge #100 ea 01/29/23 07/14/24 Unknown Rx Medial Driver 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 Brace #1 ea 02/28/23 07/14/24 Unknown Rx baclofen 20 mg tablet 20 mg PO BID PRN muscle spasm 90 02/26/24 08/03/24 Unknown Rx days #180 tabs blood sugar diagnostic (Blood #50 ea 02/26/24 07/14/24 Unknown Rx Glucose Test strips) lisinopril 20 mg tablet 20 mg PO DAILY 90 days #90 tabs 02/26/24 08/03/24 08/02/24 Rx omeprazole 40 mg capsule,delayed 40 mg PO DAILY 90 days #90 caps 02/26/24 08/03/24 08/02/24 Rx release potassium chloride 10 mEq 20 meq (2 x 10 mEq) PO DAILY 90 02/26/24 08/03/24 08/02/24 Rx capsule,extended release days #180 caps torsemide 20 mg tablet 40 mg (2 x 20 mg) PO DAILY 90 days 02/26/24 08/03/24 08/02/24 Rx #180 tabs lovastatin 20 mg tablet 20 mg PO BEDTIME 90 days #90 tabs 04/08/24 08/03/24 08/02/24 Rx lamotrigine 100 mg tablet 100 mg PO DAILY #30 tabs 05/22/24 08/03/24 08/02/24 Rx (Lamictal) tirzepatide 10 mg/0.5 mL 10 mg (0.5 mL) SUBCUT .WEEKLY 28 07/02/24 08/03/24 07/19/24 Rx subcutaneous pen injector days #2 mL methocarbamol 750 mg tablet 750 mg PO TID 2 weeks #42 tabs 07/14/24 08/03/24 08/02/24 Rx fluticasone propionate 50 2 spray intranasal DAILY PRN 07/21/24 08/03/24 08/02/24 History mcg/actuation nasal Allergy Symptoms spray,suspension (Flonase Allergy Relief) Allergies Allergy/AdvReac Type Severity Reaction Status Date / Time adhesive tape Allergy hives Verified 07/21/24 08:16 Penicillins Allergy hives Verified 07/21/24 08:16 glipizide AdvReac Mild nausea Verified 07/21/24 08:16 Current Medications Generic Name Dose Route Start Last Admin Trade Name Freq PRN Reason Stop Dose Admin Sodium Chloride 1,000 mls @ 30 mls/hr 08/03/24 06:00 08/03/24 06:31 Sodium Chloride 0.9% IV 08/04/24 05:59 30 mls/hr .Q24H ENMA Administration PFSH Anesthesia Medical History Major depressive disorder, recurrent, mild Psychiatric care Surgical History S/P laparoscopic cholecystectomy Hx of hernia repair Umbilical Hx of fracture of leg Hx of carpal tunnel repair bilateral Family History Mother Diabetes Father Cancer Social History Smoking and tobacco/nicotine status: never used tobacco/nicotine Alcohol intake: current Alcohol intake frequency: holidays/special occasions only Marital status: Data Anesthesia 08/03/24 06:19 08/03/24 06:19 Short CBC 08/03/24 Range/Units 06:19 WBC 9.28 (3.29-11.43) 10^3/uL Hgb 13.30 (11.27-16.99) g/dL Hct 40.5 (37-53) % MCV 85.4 (82-101) fl Plt Count 195 (157-399) 10^3/cmm Neut % (Auto) 68.8 % Neut # (Auto) 6.38 (1.8-7.7) 10^3/uL BMP 08/03/24 06:19 Sodium 136 Chloride 99 Carbon Dioxide 26 BUN 21 Creatinine 0.9 Calcium 9.1 Cardiac Studies: No Data to Display
--- NOTE | 2024-08-03 07:15 | ANES.PROC ---
Anesthesia Procedures Procedure/Date: 08/03/24 Nerve Block ^: Nerve Block 1: Main Anesthesia: spinal anesthesia block Time Out Performed: Yes Consent: requested by attending/covering physician, from patient, from other, risks and benefits reviewed and patient agrees to proceed Nerve block location: adductor canal (L) Anesthesia monitors applied: pulse oximetry, EKG and BP cuff Nerve block position: supine Anesthetic Used: ropivicaine 0.5% (30 ml) and with decadron (4 mg) Ultrasound used to: visualize and ID femerol nerve Nerve Stimulator Used?: No Interscalene/Femoral BLK: 4 stimuplex 21 g needle used for position and inplane approach, visualize local anesthetic spread and no vascular puncture identified Injection: neg aspiration of heme Patient Tolerated Procedure: well Complications: none
[2024-08-03] MEDS: ceFAZolin 2,000 mg SDV 2000 MG IVP (07:17)
[2024-08-03] MEDS: tranexamic acid 1,000 mg/10mL SDV 1000 MG IV (07:41)
[2024-08-03 08:28] LABS: Glucose Point of Care 137 mg/dL (70-110)
[2024-08-03] MEDS: EPINEPHrine 1 mg/mL INJ XX (08:30)
[2024-08-03] MEDS: tranexamic acid 1,000 mg/10mL SDV 1000 MG XX (08:30)
[2024-08-03] MEDS: ketorolac 30 mg/mL INJ XX (08:30)
[2024-08-03] MEDS: ROPivacaine 0.2% Premix 100 mL 200 MG INTRA-ARTI (08:30)
[2024-08-03] MEDS: VANCOMYCIN ADD-Vantage 1,000 MG VIAL 1000 MG XX (09:20)
--- NOTE | 2024-08-03 09:52 | XRR_ITS ---
PROCEDURE INFORMATION: Exam: XR Left Knee Exam date and time: 08/03/2024 10:05 AM Age: 68 years old Clinical indication: Device placement; Joint replacement hardware; Prior surgery; Surgery date: Post-operative (0-2 days); Surgery type: L tka; Additional info: Post L tka, do in pacu TECHNIQUE: Imaging protocol: Radiologic exam of the left knee. Views: 1 or 2 views. COMPARISON: CT knee LT [facility] [id number] 07/22/2024 3:41 PM FINDINGS: Bones/joints: There are postoperative changes status post left knee replacement. Components appear to be in anatomic alignment. No fracture or dislocation is noted. Bony mineralization is normal. There is air within the joint from recent surgery. Soft tissues: Normal. XR/XR knee LT 1-2V [id number] IMPRESSION: 1. Postoperative changes status post left knee replacement.
--- NOTE | 2024-08-03 09:54 | P.BOP_ITS ---
Date of Procedure: [August 03, 2024] Surgeon: [Dr. Vasquez DO] Quality Control Associate(s): [Alonso Vasquez PA-C] Procedure(s) performed: [Left knee total arthroplasty with Og robotic assist] Findings of the procedure(s): [Left knee degenerative joint disease. Procedure went well and as planned] Estimated blood loss: [20 mL] Specimen(s) removed: [N/A] Post-operative diagnosis: [Left knee degenerative joint disease]
--- NOTE | 2024-08-03 09:55 | P.OP_ITS ---
Operative Report Date of procedure: August 03, 2024 Surgeon: Cb Vasquez DO Groundskeeper: Alonso Vasquez PA-C: PA was necessary for assistance in this case with leg positioning retraction and protection of neurovascular structures as well as assistance in implantation wound closure and dressing application. Procedure: Preoperative diagnosis: Left knee degenerative joint disease Post-op diagnosis: Same Procedure done: Left total knee arthroplasty, cemented?robotic assisted Chayo Implants: [place] triathlon size 4 femur CR cemented?left [place] triathlon size? 5 tibia universal baseplate cemented [place] triathlon symmetric patella size 33 mm Eris triathlon polyethylene 10mm Surgeon: Cb Vasquez DO Estimated blood?loss: 20 mL Tourniquet 73minutes IV fluids: 1100 mL Urine output: 100 mL Complications: None Condition: stable Disposition: floor Brief History: Patient is a 68-year-old male with with chronic?left knee degenerative joint d isease.? Patient has been worked up in the outpatient setting in the orthopedic office at this point time through shared decision making given? [id number] arthritis as well as failed conservative treatment, and pt would?like to proceed with a?left total knee arthroplasty.? Through shared decision making elected to proceed with surgical intervention for?left total knee arthroplasty with chayo robotic assisted.? We talked about continued conservative treatment and surgical intervention as far as the risk benefits complications alternatives surgical and nonsurgical treatment options.? At this point time understanding patient risks with surgery he agrees to proceed with surgical intervention.? Once again? risk with surgery include but are not?limited to make it better make it worse blood clot, heart attack, stroke, on the table, infection, injury to nerves or vessels, persistent pain, arthrofibrosis, implant failure.? Understanding these risks patient agrees to proceed with surgical intervention consent was obtained in the preop.? All questions answered. Procedure: Patient was seen and evaluated in the preoperative holding area.? Consent was reviewed and signed with patient with plan for?left total knee arthroplasty.? All questions answered.? Correct extremity marked.? Patient seen and evaluated by the anesthesia department and once cleared for surgery was taken back to the operative suite.? Patient was placed into a supine position on the OR table.? All bony prominences were well-padded.? Patient was appropriately secured to the bed.? Patient underwent anesthesia per the anesthesia department.? Patient received spinal anesthesia and? Gee catheter was placed.? A nonsterile tourniquet was applied to the?left thigh.? At this point in time a final timeout performed.? Patient received appropriate preoperative antibiotics and TXA. Next the?left?lower extremity was then prepped and draped in standard orthopedic fashion. Esmarch tourniquet was used exsanguinate the?left?lower extremity.? Tourniquet was insufflated to 250 mmHg. A standard anterior incision was made over midline of the knee.? Sharp scalpel excision through skin and subcutaneous tissue full-thickness skin flaps were made.? Fascia was elevated off of the extensor retinaculum was stable with medial parapatellar arthrotomy was then made.? The performed standard sequential releases..? Immediately on entry into the joint patient was found to have severe eburnated bone and tricompartmental arthritic changes noted.? With significant osteophyte formation.? Next the the patella was then stuffed and the knee was then flexed.?? Padmini was placed superiorly around the anterior aspect of the femur this was freed of synovium and I subsequently then placed by 2 femur pins to establish my femur arrays for the Chayo robot.? These were then placed bicortically and? femur array was then appropriately secured with appropriate visualization.? Next attention was turned towards the tibial rays.? These were then drilled sequentially bicortically in parallel fashion and intraincisional.? I then placed my guide as well as my tibial array on in place.? This was appropriately secured and had excellent visualization with the Chayo robot.? Next the tibial checkpoint as well as femur checkpoint were then placed.? At this point time I then subsequently established my head center as well as my medial?lateral malleoli as well as my checkpoints.? Next utilizing standard Chayo technology I then mapped out the appropriate points and confirmation points around the femur as well as the tibia in standard fashion.? Once this was then done I then removed all osteophytes in preparation for dynamic testing.? All osteophytes were removed as well as I removed the ACL and the PCL was excised due to its significant tearing and degeneration noted.? At this point time the knee was brought into full extension and we performed our standard evaluation of our gap balancing stressing his?ligaments and extension as well as flexion appropriate adjustments were made to have appropriate gap balancing in both flexion and extension.? This plan for final cuts to correct varus deformity.? We get a preoperative plan evaluating our implants which was a size 4 femur and a size 5 tibia.? Next we brought in the Chayo robot and sequentially made our femur cuts.? All excess bony cuts were then removed.? Finally we made our tibial cut.? Once this was done a standard PCL retractor was then placed into this position I excised the medial and?lateral meniscus.? The tibial cut was then subsequently removed all excess bony debris was removed.? I then utilized a?lamina educational therapist and remove the posterior osteophytes.? At this point time sized the tibia and confirmed this was a size 5.? I utilized our blunt probe to establish rotation of tibial implant.? Once this was done I then placed my tibia size 5 trial in appropriate position and then subsequently placed tibial pins to hold this into place placed and trailed up to a size 10 mm poly as well as a size 4 femur which was appropriately impacted in place knee was then subsequently brought into extension. Trials were then assessed,? this was stable with varus valgus stress in extension as well as had symmetrical translation when brought into flexion demonstrating symmetrical gaps. I had excellent balance gaps in flexion and extension with varus and valgus stresses.? At this point I was satisfied with these implants these were then verified and opened on the back table size 5 tibia, size4 femur,? size 10 mm polythickness.? We did confirm appropriate gap b alancing and stresses as well as alignment utilizing? Chayo and were satisfied with this plan.? ?At this point time with my trials in place I then towel clip the patella everted this made appropriate measurements subsequently utilizing freehand technique performed by patellar resurfacing this was confirmed to be appropriate resection and subsequently sized to be a 33 mm symmetric.? My drill peg guides were then clamped and appropriate position and appropriate position in the patella for appropriate tracking and parallel with the joint.? Pegs were drilled trial implant was placed and the knee was then subsequently ranged and found to have excellent patellar tracking.? Femur pegs were then drilled. All checkpoints as well as guidepins and arrays were removed and appropriate counts made.?? Satisfied with our tibial placement rotation I then utilized the keel punch and prepped the tibia.? At this point time all of our trial implants were removed.? The wound bed? was thoroughly irrigated and dried and prepped for cementation.? Cement was mixed on the back table.? Once cement was ready this was then covered onto the tibia and the tibial baseplate was then impacted and all excess cement was removed.? Next the polyethylene was then impacted into place on the tibial baseplate.? Next cement was placed onto the femur as well as under the femur implants and impacted in to place and all excess cement was extruded and removed.? Knee was taken into full extension? to clear all excess cement was removed.? Warm saline was placed over the joint.? I then towel clip patella and dried for cementation. cemented the patella into place.? This was all clamped and the cement was allowed to cure.? Thorough irrigation performed with pulse?lavage.? I then placed my periarticular injection while the cement was curing.? Once cured the knee was taken through range of motion and had excellent stability and gaps were balanced in flexion and extension.? Tourniquet was then deflated. hemostasis satisfactory with electrocautery.? Vancomycin powder was placed in wound bed for antibiotic infection prophylaxis. Next I then subsequently closed the capsule with Ethibond suture as well as a running strata fix suture.? Knee was then taken through range of motion 30 times.? Next the skin was then closed in?layered fashion of running stratifix sutures of deep and subcutenous tissue and skin.? ?closed in flexion and Prineo glue was then placed over the incision this allowed to cure.? Incision was covered with mina incisional VAC dressing, with ABDs soft roll and Kennedy wrap.? Patient was then awakened from anesthesia and taken to PACU in stable condition. Disposition: Patient taken to PACU in stable condition will be admitted to the floor for pain control PT/OT weight-bear as tolerated?left?lower extremity dressing changes as needed, DVT prophylaxis. Pain control. Patient will receive appropriate postoperative antibiotics. patient will be seen by the internal medicine team for medical management.? Patient will follow up with the office in 2 weeks.? Patient understands agrees with current plan.? All questions answered.
--- NOTE | 2024-08-03 09:56 | PM.PACU ---
PACU note Narrative: Patient is a 68-year-old male just underwent a left total knee arthroplasty. Pt transferred to PACU in stable condition. Dressing is dry. pt is awake and alert. Distal pulses are palpable toes are warm and well-perfused. Cap refill is normal and under 2 seconds. Unable to assess any range of motion or sensation left lower extremity due to residual spinal block. Pain is controlled. Exam: awake Disposition: admitted
--- NOTE | 2024-08-03 10:15 | ANE.PACU2 ---
Inpatient post-anesthesia follow up: Airway intact: Yes Vital signs: Temperature 98.1 F Pulse Rate 83 Respiratory Rate 18 Blood Pressure 122/60 Pulse Oximetry 97 Oxygen Delivery Me thod Nasal Cannula Oxygen Flow Rate 2 Fraction of Inspir ed Oxygen Hydration adequate: Yes Nausea and vomiting: No Pain level: 1 Mental status: Baseline
--- NOTE | 2024-08-03 10:28 | PC.NURSE ---
1023 - accepted into OB 11 with 2 RNs at side - left knee c/d/i - schaefer patent with yellow urine - left foot remains warm and pink with PPP as was since entering pacu - BP 99/45 - 02 94 2LNC - pulse 80 - temp 98.0
--- NOTE | 2024-08-03 13:20 | P.CONIM_ITS ---
Providers/Reason For Consult 2 Consulting Physician/Specialty*: Hospitalist Reason for Consult*: Home medications Attending Physician: Cb Vasquez DO Primary Care Provider: Iris Vance MD History of Present Illness History of Present Illness Shakeel Macias is a 68 year old male after left TKA. He states he is doing well postoperatively, but feels that his room is very warm. He otherwise has been at baseline state of health dealing with some heartburn/GERD, hypertension, hypercholesterolemia and constipation. Review of Systems 2 Const: Denies: fever(s), chills, body aches or malaise ENMT: Denies: throat pain Card: Denies: chest pain, edema, pre-syncope or dyspnea on exertion Resp: Denies: dyspnea, productive cough, change in phlegm color or hemoptysis GI: Denies: abdominal pain, nausea, vomiting, diarrhea, constipation, hematochezia or melena : Denies: flank pain, difficulty urinating, urinary frequency or hematuria Musc: Denies: back pain, joint swelling or joint redness Skin/Breast: Denies: rash or new lesions Neuro: Denies: headache(s) or confusion Endo: Denies: polyuria or polydipsia Medications/Allergies Home Medications ?Medication ?Instructions ?Recorded ?Confirmed ?Last Taken ?Type aspirin 81 mg chewable tablet 81 mg PO DAILY 04/03/21 08/03/24 2 Weeks Ago History ~07/20/24 hydrocodone 10 mg-acetaminophen 1 tab PO Q6H PRN Pain, Severe 04/03/21 08/03/24 08/02/24 History 325 mg tablet polyethylene glycol 3350 17 17 g PO DAILY #850 grams 0 09/13/22 08/03/24 08/02/24 Rx gram/dose oral powder blood-glucose meter #1 01/29/23 07/14/24 Unkn own Rx lancets 32 gauge #100 01/29/23 07/14/24 Un known Rx Medial Propulsion Engineer Brace #1 02/28/23 07/14/24 Unkn own Rx baclofen 20 mg tablet 20 mg PO BID PRN muscle spas m 90 02/26/24 08/03/24 Unknown Rx days #180 tabs blood sugar diagnostic (Blood #50 ea 02/26/24 07/14/24 Unknown Rx Glucose Test strips) lisinopril 20 mg tablet 20 mg PO DAILY 90 days #90 t abs 02/26/24 08/03/24 08/02/24 Rx omeprazole 40 mg capsule,delayed 40 mg PO DAILY 90 day s #90 caps 02/26/24 08/03/24 08/02/24 Rx release potassium chloride 10 mEq 20 meq (2 x 10 mEq) PO DAILY 90 02/26/24 08/03/24 08/02/24 Rx capsule,extended release days #180 caps torsemide 20 mg tablet 40 mg (2 x 20 mg) PO DAILY 9 0 days 02/26/24 08/03/24 08/02/24 Rx #180 tabs lovastatin 20 mg tablet 20 mg PO BEDTIME 90 days #90 tabs 04/08/24 08/03/24 08/02/24 Rx lamotrigine 100 mg tablet 100 mg PO DAILY #30 tabs 08/03/24 08/02/24 Rx (Lamictal) tirzepatide 10 mg/0.5 mL 10 mg (0.5 mL) SUBCUT .WEEKL Y 28 07/02/24 08/03/24 07/19/24 Rx subcutaneous pen injector days #2 mL methocarbamol 750 mg tablet 750 mg PO TID 2 weeks #42 tabs 07/14/24 08/03/24 08/02/24 Rx fluticasone propionate 50 2 spray intranasal DAILY PRN 07/21/24 08/03/24 08/02/24 History mcg/actuation nasal Allergy Symptoms spray,suspension (Flonase Allergy Relief) Allergies Allergy/AdvReac Type Severity Reaction Status Date / Time adhesive tape Allergy hives Verified 07/21/24 08:16 Penicillins Allergy hives Verified 07/21/24 08:16 glipizide AdvReac Mild nausea Verified 07/21/24 08:16 PFSH Acute 2 PFSH: Medical History Major depressive disorder, recurrent, mild Psychiatric care Surgical History S/P laparoscopic cholecystectomy Hx of hernia repair Umbilical Hx of fracture of leg Hx of carpal tunnel repair bilateral Family History Mother Diabetes Father Cancer Social History Smoking and tobacco/nicotine status: never used tobacco/nicotine Alcohol intake: current Alcohol intake frequency: holidays/special occasions only Marital status: Vitals/I&O/Wt Last Vital Signs Temp 98.0 F 08/03/24 10:25 Pulse 77 08/03/24 10:25 Resp 16 08/03/24 10:25 BP 99/45 08/03/24 10:25 Pulse Ox 97 08/03/24 10:25 O2 Del Method Room Air 08/03/24 10:30 O2 Flow Rate 2 08/03/24 10:25 08/02/24 08/03/24 08/03/24 22:59 06:59 14:59 Intake Total 100 / 100 1150 / 1150 Output Total 520 / 520 Balance 100 / 100 630 / 630 Weight last 48 hrs Weight 113.398 kg Weight 113.398 kg Physical Exam 2 Const: COMMON NORMALS: patient oriented x3 and alert GENERAL APPEARANCE: c ooperative ORIENTATION/CONSCIOUSNESS: Yes awake HENMT: COMMON NORMALS: oropharynx normal Neck/C-Spine: COMMON NORMALS: no JVD Resp: COMMON NORMALS: normal respiratory effort and clear to auscultation bilaterally AUSCULTATION: clear to auscultation bilaterally Cardio: COMMON NORMALS: no JVD, regular rhythm, S1 normal heart sound present, S2 normal heart sound present and No murmurs present (Cardio) RHYTHM: regular rhythm HEART SOUNDS: S1 normal heart sound present and S2 normal heart sound present GI: COMMON NORMALS: Normal to inspection, nondistended, normoactive bowel sounds present, Soft to palpation and non-tender PALPATION: Yes Soft to palpation Extremity: COMMON NORMALS: no joint enlargement and no pedal edema OTHER: Left knee postoperative dressing. Cool pack. Neuro: COMMON NORMALS: patient oriented x3 and moves all extremities S ENSORIUM/ORIENTATION: Yes alert Skin: COMMON NORMALS: no rashes or lesions noted GENERAL SKIN EXAM: no rashes or lesions noted Urinary Catheter Management: Gee: Cath Placed During This Visit: yes Urinary Catheter Date of Insertion: 08/03/24 Urinary Catheter Time of Insertion: 07:28 Data 08/03/24 06:19 08/03/24 06:19 A&P Assessment and plan (1) Osteoarthritis of left knee: Status post left knee TKA in an uneventful procedure, discussed with orthopedic surgeon, reviewed. Note, reported EBL 20 mL. Blood pressure soft 99/45. Reviewed vitals, CBC, BMP, knee x-ray. As per discussion he is going to be on Eliquis VTE prophylaxis. Gee catheter is in, remove once mobilizing. Pending PT assessment. Pending reassessment blood counts, reassessment with therapy, post discharge planning, tentative discharge possibly tomorrow. Qualifiers: Osteoarthritis type: primary Qualified Code(s): M17.12 - Unilateral primary osteoarthritis, left knee Plan Diabetes: On Mounjaro. In the hospital sliding scale insulin. Consult carbohydrate diet. Monitor POC glucose. Resume Mounjaro upon return home. HTN: Hold antihypertensives discussed with him, blood pressure soft 99/45, monitor blood pressure. He normally takes lisinopril and is on torsemide. Currently he is receiving some IV fluid. He is awake and alert, resumed on oral diet. Will reduce IV fluid rate. Would discontinue when possible. HLD: Continue statin GERD: Continue PPI Constipation: Continue MiraLAX PDMP PDMP Reviewed: Not Reviewed Consult Attestations 2 Medical Necessity Statement: Postoperative care after left TKA. and High MDM includes amount and/or complexity of data reviewed/ordered [ previous or external records, resulted lab(s)/test(s), ordered lab(s)/test(s) and other healthcare professional discussion] as documented Diagnoses Primary osteoarthritis of left knee M17.12 Osteoarthritis type: primary
[2024-08-03] MEDS: chlorhexidine gluconate 0.12% Btl 473 mL 30 ML MUCOUS MEM ×3 (13:23→20:28)
[2024-08-03] MEDS: tranexamic acid 1,000 MG/100 ML PREMIX 600 MG IV (13:23)
[2024-08-03] MEDS: ketorolac 30 mg/mL INJ 15 MG IVP ×2 (13:23→20:28)
[2024-08-03] MEDS: oxyCODONE 5 mg IR Tab/Cap PO ×2 (13:23→18:03)
[2024-08-03] MEDS: pantoprazole DR 40 mg Tablet PO (14:16)
[2024-08-03] MEDS: ceFAZolin 2,000 MG in sodium chloride 0.9% (plus) 50 ML 100 MG IV ×2 (16:33→22:57)
[2024-08-03 17:27] LABS: Glucose Point of Care 186 mg/dL (70-110)
[2024-08-03] MEDS: iron polysaccharide complex 150 mg Capsule PO (17:37)
[2024-08-03] MEDS: mupirocin oint 22 gm 1 APPLIC NASAL (17:37)
[2024-08-03] MEDS: docusate sodium 100 mg Capsule PO (17:38)
[2024-08-03] MEDS: calcium carb-vit d 600mg/400unit 1 Tablet 1 EACH PO (17:38)
[2024-08-03] MEDS: insulin lispro 100 unit/1 mL SUBCUT ×2 (17:39→20:41)
[2024-08-03] MEDS: atorvastatin 40 mg Tablet 20 MG PO (20:28)
[2024-08-03 20:36] LABS: Glucose Point of Care 263 mg/dL (70-110)
[2024-08-03] MEDS: baclofen 10 mg Tablet 20 MG PO (21:42)
[2024-08-04 04:00] VITALS: BP 110/63; PULSE 64; RESP 18; TEMP 36.5; O2SAT 97
[2024-08-04 05:21] VITALS: RESP 18
[2024-08-04] MEDS: ketorolac 30 mg/mL INJ 15 MG IVP (05:21)
[2024-08-04] MEDS: oxyCODONE 5 mg IR Tab/Cap PO ×3 (05:21→14:54)
[2024-08-04] MEDS: acetaminophen 1,000 MG/100 ML PIGGYBACK 400 MG IV (05:31)
[2024-08-04 05:39] LABS: Basophils % 0.3 %; Eosinophils # 0.3 10^3/uL (0.0-0.8); Eosinophils % 2.2 %; Hematocrit 36.3 % (37-53); Lymphocytes # 1.2 10^3/uL (0.8-4.8); Lymphocytes % 9.9 %; Mean Corpuscular HGB Conc 32.2 g/dL (30-55); Mean Corpuscular Hemoglobin 28.1 pg (27-33); Mean Corpuscular Volume 87.1 fl (82-101); Mean Platelet Volume 9.4 fL (7.4-10.4); Monocytes # 1.1 10^3/uL (0.2-0.9); Monocytes % 8.5 %; Neutrophils # 9.79 10^3/uL (1.8-7.7); Neutrophils % 78.8 %; Nucleated Red Blood Cells % 0 %; Platelet Count 186 10^3/cmm (157-399); Red Blood Count 4.17 10^6/uL (3.85-5.65); Red Cell Distribution Width 14.8 % (12.1-15.1); White Blood Count 12.42 10^3/uL (3.29-11.43)
[2024-08-04 05:55] LABS: Anion Gap 15.2 (5-19); Blood Urea Nitrogen 20 mg/dL (8-23); Calcium 8.5 mg/dL (8.5-10.5); Carbon Dioxide 25 mmol/L (22-29); Chloride 103 mmol/L (98-107); Creatinine Clr Calc Pharmacy 101.8176; Glomerular Filtration Rate 84.4 mL/min (90-130); Glucose 137 mg/dL (65-115); Osmolality Calculated 293 mOsm/kg (285-295); Potassium 4.2 mmol/L (3.5-5.1); Sodium 139 mmol/L (136-145)
[2024-08-04] MEDS: ceFAZolin 2,000 MG in sodium chloride 0.9% (plus) 50 ML 100 MG IV (06:43)
[2024-08-04 08:13] LABS: Glucose Point of Care 164 mg/dL (70-110)
--- NOTE | 2024-08-04 08:13 | PM.PN ---
Subjective Subjective: His leg is little bit sore today, but otherwise he is doing okay. Denies any trouble breathing. Vitals/I&O/Wt Last Vital Signs Temp 97.7 F 08/04/24 04:00 Pulse 64 08/04/24 04:00 Resp 18 08/04/24 05:21 BP 110/63 08/04/24 04:00 Pulse Ox 97 08/04/24 04:00 O2 Del Method Room Air 08/04/24 04:00 O2 Flow Rate 2 08/03/24 13:25 08/03/24 08/04/24 08/04/24 22:59 06:59 14:59 Intake Total 350 / 1500 150 / 1650 Output Total 350 / 870 375 / 1245 Balance 0 / 630 -225 / 405 Weight last 48 hrs Weight 113.398 kg Weight 113.398 kg Physical Exam Const: COMMON NORMALS: patient oriented x3 and alert GENERAL APPEARANCE: cooperative ORIENTATION/CONSCIOUSNESS: Yes awake HENMT: COMMON NORMALS: oropharynx normal Neck/C-Spine: COMMON NORMALS: no JVD Resp: COMMON NORMALS: normal respiratory effort and clear to auscultation bilaterally AUSCULTATION: clear to auscultation bilaterally Cardio: COMMON NORMALS: no JVD, regular rhythm, S1 normal heart sound present, S2 normal heart sound present and No murmurs present (Cardio) RHYTHM: regular rhythm HEART SOUNDS: S1 normal heart sound present and S2 normal heart sound present GI: COMMON NORMALS: Normal to inspection, nondistended, normoactive bowel sounds present, Soft to palpation and non-tender PALPATION: Yes Soft to palpation Extremity: COMMON NORMALS: no joint enlargement and no pedal edema OTHER: Left knee postoperative dressing. Cool pack. Neuro: COMMON NORMALS: patient oriented x3 and moves all extremities SENSORIUM/ORIENTATION: Yes alert Skin: COMMON NORMALS: no rashes or lesions noted GENERAL SKIN EXAM: no rashes or lesions noted Urinary Catheter Management: Gee: Cath Placed During This Visit: yes, but has since been removed by the nurse Reason for Continuing Indwelling Catheter: Decision to DC Catheter Urinary Catheter Date of Insertion: 08/03/24 Urinary Catheter Time of Insertion: 07:28 Date Urinary Catheter Removed: 08/03/24 Time Urinary Catheter Discontinued: 16:04 Data 08/04/24 05:30 08/04/24 05:30 A&P Assessment and plan (1) Osteoarthritis of left knee: Pending orthopedic reassessment. Reviewed vitals, CBC, BMP. Stop IV fluid. Hemoglobin decreased from 13-11.7, not requiring transfusion at this time. Discussed with him to follow-up blood counts with his primary provider. As per review of case loader operator note, home health arrangements pending. Tentative discharge today per orthopedics. Reviewed orthopedic notes. Qualifiers: Osteoarthritis type: primary Qualified Code(s): M17.12 - Unilateral primary osteoarthritis, left knee Plan Diabetes: On Mounjaro. In the hospital sliding scale insulin. Consult carbohydrate diet. Monitor POC glucose. Resume Mounjaro upon return home. HTN: Discussed with him to stop lisinopril for now, continue to monitor blood pressures at home and save values to bring to his appointment so that he can reassess together with his primary provider whether to resume lisinopril and whether dose decreased may be appropriate. Stop IV fluid. HLD: Continue statin GERD: Continue PPI Constipation: Continue MiraLAX PDMP PDMP Reviewed: Not Reviewed Attestations Medical Necessity Statement*: Likely return home today pending orthopedic reassessment. Diagnoses Primary osteoarthritis of left knee M17.12 Osteoarthritis type: primary
[2024-08-04] MEDS: pantoprazole DR 40 mg Tablet PO (09:12)
[2024-08-04 09:13] VITALS: RESP 16
[2024-08-04] MEDS: multivitamin therapeutic Tablet 1 TAB PO (09:13)
[2024-08-04] MEDS: calcium carb-vit d 600mg/400unit 1 Tablet 1 EACH PO (09:13)
[2024-08-04] MEDS: potassium chloride ER 10 mEq Tablet 20 MEQ PO (09:13)
[2024-08-04] MEDS: docusate sodium 100 mg Capsule PO (09:13)
[2024-08-04] MEDS: apixaban 5 mg Tablet 2.5 MG PO (09:13)
[2024-08-04] MEDS: mupirocin oint 22 gm 1 APPLIC NASAL (09:13)
[2024-08-04] MEDS: lamoTRIgine 100 mg Tablet PO (09:13)
[2024-08-04] MEDS: chlorhexidine gluconate 0.12% Btl 473 mL 30 ML MUCOUS MEM (09:13)
[2024-08-04] MEDS: TORSEmide 20 mg Tablet 40 MG PO (09:13)
[2024-08-04] MEDS: insulin lispro 100 unit/1 mL SUBCUT ×2 (09:17→12:48)
--- NOTE | 2024-08-04 10:25 | PC.NURSE ---
OT at bedside
[2024-08-04 10:27] VITALS: BP 115/67; PULSE 85; RESP 16; TEMP 36.7; O2SAT 96
[2024-08-04 12:01] LABS: Glucose Point of Care 202 mg/dL (70-110)
--- NOTE | 2024-08-04 12:59 | PM.DCS ---
Discharge Providers Date of Admission: 08/03/24 09:21 Date of Discharge: August 04, 2024 Attending Provider at Admission: Cb Vasquez DO Attending Provider at Discharge: Cb Vasquez DO Consults: Dr. Wagner?hospitalist Primary Care Provider: Iris Vance MD Diagnoses at Discharge Discharge Diagnosis (1) Osteoarthritis of left knee: Status: Resolved Qualifiers: Osteoarthritis type: primary Qualified Code(s): M17.12 - Unilateral primary osteoarthritis, left knee Reason for Visit Reason for Visit: M17.12 Brief History: Status post left total knee arthroplasty?Og robotic assisted Hospital Course Hospital Course Patient presented to the preoperative holding area with plan for left total knee arthroplasty after patient has been worked up in the outpatient setting for failed conservative treatment of [left] knee degenerative joint disease. Once cleared by anesthesia for surgery patient subsequently was taken back to the operative suite underwent anesthesia per anesthesia department and then subsequently underwent a [left] total knee arthroplasty. Procedure was performed without any complications patient was taken to PACU in stable condition patient recovered well in PACU and then was admitted to the floor postoperatively internal medicine was consulted and on board for medical management and assistance with care. Patient received appropriate PT/OT, postoperative antibiotics, postoperative TXA, pain control, postoperative DVT prophylaxis. Elevation and ice. Patient encouraged for knee range of motion allowed weightbearing as tolerated to the operative lower extremity. Dressing was changed as needed, labs were monitored daily. Patient recovered well postoperatively and worked well and progressed well with therapy. It was determined on postoperative day [1 ] the patient was stable for discharge from an orthopedic standpoint and medicine. Patient was comfortable with discharge and plan was discharged home. Patient received appropriate discharge instructions as well as pain medication and DVT prophylaxis postoperatively. Given appropriate instructions for dressing management. Patient will follow-up with Dr. Vasquez/orthopedics in the office in 2 weeks. All questions answered. Understand if there is any issues questions or concerns and contact the office. Physical Exam Narrative: Left knee examination: Dressing on in place, clean dry and intact. No evidence of saturation. Patient has normal postoperative swelling and tenderness to palpation to the knee. Compartments are soft compressible,'s calf soft and nontender. Sensations intact to light touch distally. Distal pulses are palpable. Patient is able to wiggle toes as well as plantarflex and dorsiflex ankle. Urinary Catheter Management: Gee: Cath Placed During This Visit: yes, but has since been removed by the nurse Reason for Continuing Indwelling Catheter: Decision to DC Catheter Urinary Catheter Date of Insertion: 08/03/24 Urinary Catheter Time of Insertion: 07:28 Date Urinary Catheter Removed: 08/03/24 Time Urinary Catheter Discontinued: 16:04 Discharge Data Studies Completed and Pending Completed Studies During Hospitalization Category Date Time Status XR knee LT 1-2V 11470 Routine Exams 08/03/24 09:52 Completed Pending at discharge Category Date Time Status Basic Metabolic Panel AM LABS Lab 08/05/24 04:00 Ordered Basic Metabolic Panel AM LABS Lab 08/06/24 04:00 Ordered Complete Blood Count w/Auto AM LABS Lab 08/05/24 04:00 Ordered Complete Blood Count w/Auto AM LABS Lab 08/06/24 04:00 Ordered Radiology Impressions Knee X-Ray 08/03/24 09:52 IMPRESSION: 1. Postoperative changes status post left knee replacement. Laboratory Results WBC 12.42 10^3/uL (3.29-11.43) H 08/04/24 05:30 RBC 4.17 10^6/uL (3.85-5.65) 08/04/24 05:30 Hgb 11.70 g/dL (11.27-16.99) 08/04/24 05:30 Hct 36.3 % (37-53) L 08/04/24 05:30 MCV 87.1 fl (82-101) 08/04/24 05:30 MCH 28.1 pg (27-33) 08/04/24 05:30 MCHC 32.2 g/dL (30-55) 08/04/24 05:30 RDW 14.8 % (12.1-15.1) 08/04/24 05:30 Plt Count 186 10^3/cmm (157-399) 08/04/24 05:30 MPV 9.4 fL (7.4-10.4) 08/04/24 05:30 Neut % (Auto) 78.8 % 08/04/24 05:30 Lymph % (Auto) 9.9 % 08/04/24 05:30 [place] % (Auto) 8.5 % 08/04/24 05:30 Eos % (Auto) 2.2 % 08/04/24 05:30 Baso % (Auto) 0.3 % 08/04/24 05:30 Neut # (Auto) 9.79 10^3/uL (1.8-7.7) H 08/04/24 05:30 Lymph # (Auto) 1.2 10^3/uL (0.8-4.8) 08/04/24 05:30 [place] # (Auto) 1.1 10^3/uL (0.2-0.9) H 08/04/24 05:30 Eos # (Auto) 0.3 10^3/uL (0.0-0.8) 08/04/24 05:30 Baso # (Auto) 0.0 10^3/uL (0.0-0.1) 08/04/24 05:30 Nucleated RBC % (auto) 0 % 08/04/24 05:30 Nucleated RBCs # 0.0 /100WBC 08/04/24 05:30 Sodium 139 mmol/L (136-145) 08/04/24 05:30 Potassium 4.2 mmol/L (3.5-5.1) 08/04/24 05:30 Chloride 103 mmol/L (98-107) 08/04/24 05:30 Carbon Dioxide 25 mmol/L (22-29) 08/04/24 05:30 Anion Gap 15.2 (5-19) 08/04/24 05:30 BUN 20 mg/dL (8-23) 08/04/24 05:30 Creatinine 0.9 mg/dL (0.7-1.2) 08/04/24 05:30 GFR Calculation 84.4 mL/min (90-130) L 08/04/24 05:30 Glucose 137 mg/dL (65-115) H 08/04/24 05:30 POC Glucose 202 mg/dL (70-110) H 08/04/24 11:57 Calculated Osmolality 293 mOsm/kg (285-295) 08/04/24 05:30 Calcium 8.5 mg/dL (8.5-10.5) 08/04/24 05:30 Blood Type A Positive 08/03/24 06:19 Rho(D) Type Rh positive 08/03/24 06:19 Antibody Screen Negative 08/03/24 06:19 Vitals Last Vital Signs Temp 98.0 F 08/04/24 10:27 Pulse 85 08/04/24 10:27 Resp 16 08/04/24 10:27 BP 115/67 08/04/24 10:27 Pulse Ox 96 08/04/24 10:27 O2 Del Method Room Air 08/04/24 10:27 O2 Flow Rate 2 08/03/24 13:25 Discharge Plan Discharge Patient Disposition: Home Health Service Condition: Stable Prescriptions: New Eliquis 2.5 mg tablet 2.5 mg PO BID 14 Days Qty: 28 0RF oxycodone 5 mg tablet 10 mg PO Q6H PRN (Reason: pain) 7 Days Qty: 56 0RF Rx Instructions: 1 tab moderate pain 2 tabs severe pain Continued aspirin 81 mg tablet,chewable 81 mg PO DAILY (DME) 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 See Rx Instructions .Route .MEDSUPPLY Qty: 1 0RF Rx Instructions: As directed fluticasone propionate [Flonase Allergy Relief] 50 mcg/actuation spray,suspension 2 spray intranasal DAILY PRN (Reason: Allergy Symptoms) Rx Instructions: administer into each nostril tirzepatide 10 mg/0.5 mL pen injector 10 mg SUBCUT .WEEKLY 28 Days Qty: 2 6RF polyethylene glycol 3350 17 gram/dose powder 17 g PO DAILY Qty: 850 11RF baclofen 20 mg tablet 20 mg PO BID PRN (Reason: muscle spasm) 90 Days Qty: 180 2RF (DME) Blood Glucose Test Strip See Rx Instructions .Route Qty: 50 11RF Rx Instructions: Use to test blood sugar once daily omeprazole 40 mg capsule,delayed release(DR/EC) 40 mg PO DAILY 90 Days Qty: 90 2RF potassium chloride 10 mEq capsule, extended release 20 meq PO DAILY 90 Days Qty: 180 2RF torsemide 20 mg tablet 40 mg PO DAILY 90 Days Qty: 180 2RF lovastatin 20 mg tablet 20 mg PO BEDTIME 90 Days Qty: 90 1RF (DME) blood-glucose meter Kit See Rx Instructions .Route Qty: 1 0RF Rx Instructions: Use to test blood sugar once daily (DME) lancets 32 gauge misc See Rx Instructions .Route Qty: 100 5RF Rx Instructions: Use to test blood sugar once daily lamotrigine [Lamictal] 100 mg tablet 100 mg PO DAILY Qty: 30 2RF Changed methocarbamol 750 mg tablet 750 mg PO TID PRN (Reason: Muscle Spasticity) 14 Days Qty: 42 1RF Held hydrocodone-acetaminophen 10-325 mg tablet 1 tab PO Q6H PRN (Reason: Pain, Severe) Hold Instructions: Resume on 08/18/24. Discontinued lisinopril 20 mg tablet 20 mg PO DAILY 90 Days Qty: 90 2RF Discharge Orders: Discharge Order (Routine); Ordered 08/04/24 Ordered By: Lopez Wagner Referrals: [facility] [Outside] Cb Vasquez DO [Physician] - Iris Vance MD [Primary Care Provider] - 4-7 days ( in [facility] 08/24/24 @ 1:45 follow up 08/25/24 @ 8:45) Discharge Diet: Regular Discharge Activity: Limit activity as instructed Patient Instructions: Oxycodone/Acetaminophen (By mouth) (Percocet), Apixaban (By mouth) (Eliquis), Acute Wound Care (DC), Total Knee Replacement (GEN), Knee Arthroscopy (GEN), Opioid Safety, Post Anesthesia Care Activity Restrictions/Additional Instructions: Orthopedic discharge instructions: Belinda Dressing--Keep dressing on and dry. After 3 days you can remove some of the dressing and shower. disconnect battery pack when showering. Belinda dressing will stay on until follow up appt in 2 weeks. The battery pack for the dressing will at 5-7 days. Battery pack can be removed and discarded once batteries . Patient may weight-bear as tolerate to the operative extremity Utilize walker as needed Encourage knee range of motion Ice and elevate as needed for pain and swelling Take pain medication as prescribed Take antinausea medication as needed Pain medication can cause constipation. take ojmh-jht-[id number] stool softeners and or MiraLAX. Take prescribed Eliquis twice daily for the next 14 days for blood clot prevention May supplement for pain with Tylenol oynu-qmu-vlupifx as needed(1000 mg every 8 hours-do not exceed more than 3000mg in 24-hour period) No baths or soaks Follow-up in the orthopedic office in 2 weeks Contact the office for any questions or concerns Okay to resume Mounjaro per internal medicine's recommendations Hold lisinopril, monitor blood pressures at home 3 times daily. Her blood pressures are currently soft, resume lisinopril with your primary doctor's guidance. Discharge Attestations Time Spent in Discharge Care*: less than 30 min Quality Metrics Clinical Quality Measures [ No reported AMI, CVA or VTE this stay] Coding Level of Care Code Acute Code for Chg Fwd Diagnoses Primary osteoarthritis of left knee M17.12 Osteoarthritis type: primary Time Spent (min) 25
[2024-08-04 14:54] VITALS: RESP 16
[2024-08-04 18:01] VITALS: BP 115/63; PULSE 64; RESP 16; TEMP 36.5; O2SAT 97
== END 2024-08-04 16:50 | disposition home health service (06) ==
LOC: OBGYN 09:22
PROVIDERS: Physician Assistant; Admitting Provider Student in an Organized Health Care Education/Training Program; PCP Family Medicine; Visit Provider Student in an Organized Health Care Education/Training Program
PROC: 8E0Y0CZ Robotic Assisted Procedure of Lower Extremity, Open Approach (ICD-10-PCS; CPT 27447; principal; 2024-08-03 07:00)
DX: M17.12 Unilateral primary osteoarthritis, left knee (principal); I10 Essential (primary) hypertension; K21.9 Gastro-esophageal reflux disease without esophagitis; E11.9 Type 2 diabetes mellitus without complications; E66.01 Morbid (severe) obesity due to excess calories; Z68.35 Body mass index [BMI] 35.0-35.9, adult; Z79.899 Other long term (current) drug therapy; Z79.82 Long term (current) use of aspirin; Z88.8 Allergy status to other drugs, medicaments and biological substances; Z88.0 Allergy status to penicillin; Z91.09 Other allergy status, other than to drugs and biological substances; Z90.49 Acquired absence of other specified parts of digestive tract; F33.0 Major depressive disorder, recurrent, mild; Z79.85 Long-term (current) use of injectable non-insulin antidiabetic drugs
CPT/HCPCS: 27447; 36415; 36416; 51702; 73560; 80048; 82962; 85025; 86850; 86900; 96372; 97110; 97116; 97161; 97165; A4216; C1776; G0378; J0131; J0171; J0690; J1100; J1815; J1885; J2250; J2371; J2405; J2704; J2710; J2795; J3370; J7030

== ENCOUNTER → 2024-08-24 14:05 | Outpatient (BNVA) | payer MEDICARE, SELFPAY ==
[2024-03-05 13:00] VITALS: BP 149/86; BMI 38.0
== END ==
PROVIDERS: PCP Family Medicine; Visit Provider Family Medicine
DX: E11.9 Type 2 diabetes mellitus without complications (principal)
CPT/HCPCS: 80048; 83036

== ENCOUNTER → 2024-08-25 08:51 | Outpatient (BNVA) | payer MEDICARE, SELFPAY ==
[2024-03-05 13:00] VITALS: BP 149/86; BMI 38.0
== END ==
PROVIDERS: PCP Family Medicine; Visit Provider Student in an Organized Health Care Education/Training Program
DX: Z96.652 Presence of left artificial knee joint (principal); M25.521 Pain in right elbow
CPT/HCPCS: 73080; 73560; 73565; 99024

== ENCOUNTER → 2024-09-16 10:35 | Outpatient (BNVA) | payer MEDICARE, SELFPAY ==
[2024-03-05 13:00] VITALS: BP 149/86; BMI 38.0
== END ==
PROVIDERS: PCP Family Medicine; Visit Provider Student in an Organized Health Care Education/Training Program
DX: G56.02 Carpal tunnel syndrome, left upper limb (principal); G56.22 Lesion of ulnar nerve, left upper limb
CPT/HCPCS: 99214

== ENCOUNTER → 2024-09-30 10:44 | Outpatient (BNVA) | payer MEDICARE, SELFPAY ==
[2024-03-05 13:00] VITALS: BP 149/86; BMI 38.0
== END ==
PROVIDERS: PCP Family Medicine; Visit Provider Student in an Organized Health Care Education/Training Program
DX: Z96.652 Presence of left artificial knee joint (principal)
CPT/HCPCS: 73560; 73565; 99024

== ENCOUNTER → 2024-11-04 14:47 | Outpatient (BNVA) | payer MEDICARE, SELFPAY ==
[2024-03-05 13:00] VITALS: BP 149/86; BMI 38.0
== END ==
PROVIDERS: PCP Family Medicine; Visit Provider Family Medicine
DX: I10 Essential (primary) hypertension (principal); E11.9 Type 2 diabetes mellitus without complications
CPT/HCPCS: 80048; 83036

== ENCOUNTER → 2025-01-06 09:53 | Outpatient (BNVA) | payer MEDICARE, SELFPAY ==
[2024-03-05 13:00] VITALS: BP 149/86; BMI 38.0
== END ==
PROVIDERS: PCP Family Medicine; Visit Provider Student in an Organized Health Care Education/Training Program
DX: Z96.652 Presence of left artificial knee joint (principal)
CPT/HCPCS: 73560; 73565; 99213

== ENCOUNTER 2025-02-05 14:49 | Emergency (ER) | payer OTHER, SELFPAY ==
[2024-03-05 13:00] VITALS: BP 149/86; BMI 38.0
--- OUTSIDE RECORDS SUMMARY | 2024-03-11 11:00 | XMS_ITS ---
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 Name Role Phone Suki Marvin MD Unavailable [phone] REASON FOR VISIT DEPOSITION Medications Medication SIG (Take, Route, Frequency, Duration) Notes Start Date End Date Status CVS Omeprazole 20 MG Oral Active Excedrin Migraine 250-250-65 MG Oral Active ProAir HFA 108 (90 Base) MCG/ACT Inhalation Active PARoxetine HCl ER 37.5 MG Oral Active ASPIRIN 81 MG ORAL TABLET *please review for potential update for e-prescription and drug interaction check* Active Clarithromycin 250 MG Oral Active Lisinopril 40 MG Oral Act jay Torsemide 20 MG Oral Acti ve MiraLax 17 GM/SCOOP Oral Active Lovastatin 20 MG Oral Act jay Symbicort 160-4.5 MCG/ACT Inhalation Active HYDROcodone-Acetaminop hen 10-325 MG Oral Active metroNIDAZOLE 500 MG Oral Active clonazePAM 1 MG Oral Acti ve Klor-Con 20 MEQ Oral Acti ve Encounters Encounter Location Date Provider Diagnosis [facility] [address] [address] [facility] [address] [place] [address] 03/11/2024 Suki Marvin Plan Of Treatment No Information Progress Notes * EUSEBIO DAVALOS DDOB:1955 (69 yo M)Acc No.[id number]:03/11/2024 Patient: Ericka EUSEBIO TAO Provider: Ericka Marvin MD :1955 A ge:68 Y S ex:Male Date:03/11/2024 Phone: Address:[address], [place] , [id number] Subjective: * Chief Complaints: * 1 . DEPOSITION. * Medical History: * Medications: T aking Symbicort 160-4.5 MCG/ACT Aerosol Inhalation , Taking HYDROcodone- Acetaminophen 10-325 MG Tablet Oral , Taking clonazePAM 1 MG Tablet Oral , Taking metroNIDAZOLE 500 MG Tablet Oral , Taking Klor-Con 20 MEQ Packet Oral , Taking Lovastatin 20 MG Tablet Oral , Taking Lisinopril 40 MG Tablet Oral , Taking Clarithromycin 250 MG Tablet Oral , Taking MiraLax 17 GM/SCOOP Powder Oral , Taking Torsemide 20 MG Tablet Oral , Taking Excedrin Migraine 250-250-65 MG Tablet Oral , Taking CVS Omeprazole 20 MG Tablet Delayed Release Oral , Taking ASPIRIN 81 MG ORAL TABLET , Notes to Pharmacist: *please review for potential update for e-prescription and drug interaction check*, Taking PARoxetine HCl ER 37.5 MG Tablet Extended Release 24 Hour Oral , Taking ProAir HFA 108 (90 Base) MCG/ACT Aerosol Solution Inhalation Objective: * Vitals: Assessment: Plan: * Treatment: * Billing Information: * Visit Code: * Procedure Codes: * Electronic signature of Khang Marvin MD on 02/05/2025 at 02:54 PM CDT Sign off status: Pending * Provider: Ericka Marvin MD Date: Generated for Jesusita stephenson/Brandee/Claudio on: 02/05/2025 02:54 PM CDT
--- OUTSIDE RECORDS SUMMARY | 2025-02-05 14:54 | XMS_ITS | Patient Health Record ---
Author Organization [facility] Address [address] [facility] [address] [place] [address] Care Team Providers Care Technical Specialist Cytogenetics Name Role Phone Suki Marvin MD Unavailable [phone] Reason For Referral No Information Medications Medication SIG (Take, Route, Frequency, Duration) Notes Start Date End Date Status Symbicort 160-4.5 MCG/ACT Inhalation Active [facility] Omeprazole 20 MG Oral Active Excedrin Migraine 250-250-65 MG Oral Active HYDROcodone-Acetaminop hen 10-325 MG Oral Active Clarithromycin 250 MG Oral Active Lisinopril 40 MG Oral Act jay Torsemide 20 MG Oral Acti ve MiraLax 17 GM/SCOOP Oral Active metroNIDAZOLE 500 MG Oral Active ProAir HFA 108 (90 Base) MCG/ACT Inhalation Active clonazePAM 1 MG Oral Acti ve PARoxetine HCl ER 37.5 MG Oral Active Lovastatin 20 MG Oral Act jay Klor-Con 20 MEQ Oral Acti ve ASPIRIN 81 MG ORAL TABLET *please review for potential update for e-prescription and drug interaction check* Active Encounters Encounter Location Date Provider Diagnosis [facility] [address] [place] [address] 03/11/2024 Suki Marvin Plan Of Treatment No Information Insurance Providers Payer Name Payer Address Payer Phone Subscriber Number Group Number Insured Name Patient Relationship to Insured Coverage Start Date Coverage End Date LEGAL [facility] [address] [place] [address] [id number] DOI 14 [id number] DAVALOS Self - patient is the insured Medical (General) History Surgical History Surgery Date(Month/Year) Surgical history includes Ca rpal Tunnel Surgery(both), Arthroscopic Knee Surgery(right), Hernia Surgery. PAST SurgHX Till 10/19/2015
[2025-02-05 15:15] VITALS: BP 130/67; PULSE 91; RESP 17; TEMP 36.8; O2SAT 99; BMI 34.7
[2025-02-05 17:19] VITALS: BP 131/74; PULSE 80; O2SAT 98
--- NOTE | 2025-02-05 17:28 | CTR_ITS ---
PROCEDURE INFORMATION: Exam: CTA Chest With Contrast Exam date and time: 02/05/2025 7:39 PM Age: 69 years old Clinical indication: Shortness of breath and other: Hypoxia; Prior surgery; Surgery date: 6+ months; Surgery type: Gallbladder; Additional info: Concern for pe TECHNIQUE: Imaging protocol: Computed tomographic angiography of the chest with contrast. Exam focused on the arteries. 3D rendering (Not supervised by radiologist): MIP and/or 3D reconstructed images were created by the technologist. Radiation optimization: All CT scans at this facility use at least one of these dose optimization techniques: automated exposure control; mA and/or kV adjustment per patient size (includes targeted exams where dose is matched to clinical indication); or iterative reconstruction. Contrast material: [id number]; Contrast volume: 73 ml; Contrast route: INTRAVENOUS (IV); COMPARISON: CR (CHEST, ) 02/05/2025 5:31 PM RADIATION DOSE METRICS: Total DLP (mGy-cm): 509.61 FINDINGS: Pulmonary arteries: No definitive radiographic evidence of pulmonary embolism or right heart strain. Aorta: Aortic atherosclerosis. Coronary atherosclerosis. Lungs: Scattered strands and dependent changes of the lung bases, likely mild atelectasis with other etiologies not totally excluded. Pleural spaces: Unremarkable. No pneumothorax. No pleural effusion. Heart: Unremarkable. No cardiomegaly. No pericardial effusion. Lymph nodes: Unremarkable. No enlarged lymph nodes. Gallbladder and biliary ducts: Cholecystectomy clips. Spleen: Small splenule. Mild degenerative changes of vertebral bodies. Wedge compression deformity of T9, age-indeterminate. Bones/joints: Old left rib 8 fracture. Soft tissues: Probable mild gynecomastia. CT/CT angio chest PE protcl [id number] IMPRESSION: 1. No definitive radiographic evidence of pulmonary embolism or right heart strain. 2. Aortic atherosclerosis.
--- NOTE | 2025-02-05 17:28 | CTR_ITS ---
PROCEDURE INFORMATION: Exam: CT Head Without Contrast Exam date and time: 02/05/2025 7:35 PM Age: 69 years old Clinical indication: Dizziness TECHNIQUE: Imaging protocol: Computed tomography of the head without contrast. Radiation optimization: All CT scans at this facility use at least one of these dose optimization techniques: automated exposure control; mA and/or kV adjustment per patient size (includes targeted exams where dose is matched to clinical indication); or iterative reconstruction. COMPARISON: No relevant prior studies available. RADIATION DOSE METRICS: Total DLP (mGy-cm): 1062.6 FINDINGS: Brain: No hemorrhage. Unremarkable white matter. No mass effect. Cerebral ventricles: No ventriculomegaly. Paranasal sinuses: Patchy mucosal thickening. No fluid levels. Mastoid air cells: Visualized mastoid air cells are well aerated. Bones: Unremarkable. No acute fracture. Soft tissues: Unremarkable. CT/CT head wo con* [id number] IMPRESSION: No acute intracranial hemorrhage.
--- NOTE | 2025-02-05 17:28 | XRR_ITS ---
PROCEDURE INFORMATION: Exam: XR Chest Exam date and time: 02/05/2025 5:31 PM Age: 69 years old Clinical indication: Pain; Chest pressure; Additional info: Chest pain; Concern for pe TECHNIQUE: Imaging protocol: Radiologic exam of the chest. Views: 1 view. COMPARISON: CT abdomen pelvis w con* [id number] 09/05/2021 8:22 PM FINDINGS: Lungs: No consolidation. Opacities at the lateral aspect of the right lung are favored to be secondary to patient rotation and overlapping soft tissue. Pleural spaces: Unremarkable. No pleural effusion. No pneumothorax. Heart/Mediastinum: Unremarkable. No cardiomegaly. Bones/joints: Unremarkable. XR/XR chest 1V portable [id number] IMPRESSION: No acute findings. If there is concern for pulmonary embolism, recommend obtaining CTA of the chest.
--- NOTE | 2025-02-05 17:28 | USR_ITS ---
PROCEDURE INFORMATION: Exam: US Duplex Left Lower Extremity Veins, Limited Exam date and time: 02/05/2025 5:42 PM Age: 69 years old Clinical indication: Pain; Leg, lower; Left; Prior surgery; Surgery date: <1 month; Surgery type: Lt knee surg; Additional info: Swelling TECHNIQUE: Imaging protocol: Real-time duplex ultrasound of the left extremity with 2-D jose scale, color Doppler flow and spectral waveform analysis including responses to compression and other maneuvers (when performed) with image documentation. Limited exam focused on the left lower extremity veins. COMPARISON: CT knee LT [place] [id number] 07/22/2024 3:41 PM FINDINGS: Left deep veins: Unremarkable. The common femoral, femoral, proximal profunda femoral and popliteal veins are patent without thrombus. Normal Doppler waveforms. Normal compressibility and/or augmentation response. Superficial veins: Greater saphenous vein at the saphenofemoral junction is patent without thrombus. Soft tissues: Unremarkable. US/[place] [id number] IMPRESSION: No evidence of deep vein thrombosis in the left lower extremity.
--- NOTE | 2025-02-05 17:29 | ECG_ITS ---
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 Measurements Intervals Jber Rate: 70 P: 66 KS: 208 QRS: 64 QRSD: 107 T: 73 QT: 369 QTc: 400 Interpretive Statements SINUS RHYTHM Compared to ECG 07/21/2024 08:29:57 No significant changes Electronically Signed On 02-05-2025 21:51:10 CDT by Butch Bernardo M.D. [email or web address]
--- NOTE | 2025-02-05 17:30 | W.ED.GENADLT ---
HPI - General Adult General: Chief complaint: General Medical Stated complaint: dizzy weak and headach and high blood pressure Time Seen by Provider: 02/05/25 17:15 History of Present Illness: Patient comes in with multiple concerns. States for the past week he has been having off-and-on dizziness which he describes as feeling neck is going to pass out. Thought initially it was his blood pressure medication so he started taking a half a dose. States he continues to have the symptoms. He also states that he has had chest pain over the last day or 2 which he describes as midsternal, pressure, comes and goes. Patient is about 4 weeks postop from a total knee replacement on the left. States that that leg is also been swelling. On physical exam he has swelling of his left leg when compared to the right. Lungs are clear to auscultation. Will check labs, EKG, give IV fluids, check CTA chest, CT head, and reassess. Associated symptoms: Reports chest pain Related Data Home Medications ?Medication ?Instructions ?Recorded ?Confirmed aspirin 81 mg chewable tablet 81 mg PO DAILY 04/03/21 01/06/25 diphenhydramine HCl 25 mg capsule 25 mg PO TID PRN 10/12/24 01/06/25 (Benadryl) Previous Rx's ?Medication ?Instructions ?Recorded polyethylene glycol 3350 17 17 g PO DAILY #850 grams 09/13/22 gram/dose oral powder blood-glucose meter #1 ea 01/29/23 lancets 32 gauge #100 ea 01/29/23 Medial Certified Diabetes Educator Brace #1 ea 02/28/23 blood sugar diagnostic (Blood #50 ea 02/26/24 Glucose Test strips) baclofen 20 mg tablet 20 mg PO BID PRN muscle spasm 90 08/24/24 days #180 tabs docusate sodium 100 mg capsule 100 mg PO BID PRN constipation 90 08/24/24 days #180 caps lamotrigine 100 mg tablet 100 mg PO DAILY 90 days #90 tabs 08/24/24 (Lamictal) lisinopril 20 mg tablet 20 mg PO DAILY 90 days #90 tabs 08/24/24 lovastatin 20 mg tablet 20 mg PO BEDTIME 90 days #90 tabs 08/24/24 omeprazole 40 mg capsule,delayed 40 mg PO DAILY 90 days #90 caps 08/24/24 release potassium chloride 10 mEq 20 meq (2 x 10 mEq) PO DAILY 90 08/24/24 capsule,extended release days #180 caps torsemide 20 mg tablet 40 mg (2 x 20 mg) PO DAILY 90 days 08/24/24 #180 tabs methocarbamol 500 mg tablet 500 mg PO TID #21 tabs 08/25/24 fluticasone propionate 50 2 spray intranasal BID PRN Allergy 10/12/24 mcg/actuation nasal Symptoms #16 grams spray,suspension (Flonase Allergy Relief) loratadine 10 mg tablet 10 mg PO DAILY #30 tabs 10/12/24 trazodone 50 mg tablet 50 mg PO .at bedtime #30 tabs 11/04/24 tirzepatide 10 mg/0.5 mL 10 mg (0.5 mL) SUBCUT .WEEKLY 28 01/21/25 subcutaneous pen injector days #2 mL Allergies Allergy/AdvReac Type Severity Reaction Status Date / Time adhesive tape Allergy hives Verified 01/06/25 10:35 Penicillins Allergy hives Verified 01/06/25 10:35 glipizide AdvReac Mild nausea Verified 01/06/25 10:35 Review of Systems Card: Reports: chest pain Neuro: Reports: other (Dizziness) PFSH ED PFSH: Medical History (Updated 02/05/25 @ 20:50 by Yoni Borges MD) Major depressive disorder, recurrent, mild Psychiatric care Surgical History S/P laparoscopic cholecystectomy Hx of hernia repair Umbilical Hx of fracture of leg Hx of carpal tunnel repair bilateral Family History Mother Diabetes Father Cancer Social History Smoking and tobacco/nicotine status: former use of tobacco/nicotine Alcohol intake: current Alcohol intake frequency: holidays/special occasions only Marital status: Physical Exam Const: COMMON NORMALS: no acute distress, patient oriented x3, healthy appearing and alert HENMT: COMMON NORMALS: normocephalic and atraumatic HEAD & SCALP: normocephalic and atraumatic Eye: COMMON NORMALS: Equal, round and reactive pupils present and EOMs intact bilaterally PUPIL: Yes Equal, round and reactive pupils present Neck/C-Spine: COMMON NORMALS: full ROM and supple Resp: COMMON NORMALS: normal respiratory effort, No retractions and No use of accessory muscles Cardio: COMMON NORMALS: regular rate and regular rhythm RATE: regular rate RHYTHM: regular rhythm GI: COMMON NORMALS: Normal to inspection, nondistended, normoactive bowel sounds present, Soft to palpation and non-tender PALPATION: Yes Soft to palpation Extremity: NARRATIVE EXTREMITY EXAM: Swelling of the left leg when compared to the Neuro: COMMON NORMALS: patient oriented x3 SENSORIUM/ORIENTATION: Yes alert OTHER: Grossly normal neuroexam, NIHSS equals 0, normal test of skew, no nystagmus, normal truncal stability Psych: COMMON NORMALS: mental status grossly normal and cooperative Course Vital Signs: Vital signs: Vital Signs Temperature 98.3 F 02/05/25 15:15 Pulse Rate 75 02/05/25 19:53 Respiratory Rate 17 02/05/25 15:15 Blood Pressure 145/86 02/05/25 19:00 Pulse Oximetry 96 02/05/25 19:53 Oxygen Delivery Me thod Room Air 02/05/25 19:53 MDM - General Adult Medical Decision Making On reassessment I talked to the patient about his test results. His CTA shows no acute cardiopulmonary process. His chest x-ray was unconcerning. His head CT shows no acute intracranial process. His ultrasound left lower extremity was also negative. His white blood cell count was normal at 7.97. His troponin was normal. He has been up and walking here with no signs of distress. We talked about the importance of following up with his primary care physician. We also discussed symptoms that should prompt immediate return to the emergency department. Will discharge at this time with precautions to return for worsening or changing symptoms. Lab Data 02/05/25 18:34 02/05/25 18:34 Radiology Impressions Chest CTA 02/05/25 17:28 IMPRESSION: 1. No definitive radiographic evidence of pulmonary embolism or right heart strain. 2. Aortic atherosclerosis. Chest X-Ray 02/05/25 17:28 IMPRESSION: No acute findings. If there is concern for pulmonary embolism, recommend obtaining CTA of the chest. Head CT 02/05/25 17:28 IMPRESSION: No acute intracranial hemorrhage. Venous Duplex 02/05/25 17:28 IMPRESSION: No evidence of deep vein thrombosis in the left lower extremity. Laboratory Results WBC 7.97 10^3/uL (3.29-11.43) 02/05/25 18:34 RBC 4.46 10^6/uL (3.85-5.65) 02/05/25 18:34 Hgb 12.80 g/dL (11.27-16.99) 02/05/25 18:34 Hct 39.7 % (37-53) 02/05/25 18:34 MCV 89.0 fl (82-101) 02/05/25 18:34 MCH 28.7 pg (27-33) 02/05/25 18:34 MCHC 32.2 g/dL (30-55) 02/05/25 18:34 RDW 14.7 % (12.1-15.1) 02/05/25 18:34 Plt Count 239 10^3/cmm (157-399) 02/05/25 18:34 MPV 9.8 fL (7.4-10.4) 02/05/25 18:34 Neut % (Auto) 58.5 % 02/05/25 18:34 Lymph % (Auto) 24.0 % 02/05/25 18:34 [place] % (Auto) 9.8 % 02/05/25 18:34 Eos % (Auto) 6.6 % 02/05/25 18:34 Baso % (Auto) 0.8 % 02/05/25 18:34 Neut # (Auto) 4.67 10^3/uL (1.8-7.7) 02/05/25 18:34 Lymph # (Auto) 1.9 10^3/uL (0.8-4.8) 02/05/25 18:34 [place] # (Auto) 0.8 10^3/uL (0.2-0.9) 02/05/25 18:34 Eos # (Auto) 0.5 10^3/uL (0.0-0.8) 02/05/25 18:34 Baso # (Auto) 0.1 10^3/uL (0.0-0.1) 02/05/25 18:34 Nucleated RBC % (auto) 0 % 02/05/25 18:34 Nucleated RBCs # 0.0 /100WBC 02/05/25 18:34 Sodium 137 mmol/L (136-145) 02/05/25 18:34 Potassium 4.0 mmol/L (3.5-5.1) 02/05/25 18:34 Chloride 98 mmol/L (98-107) 02/05/25 18:34 Carbon Dioxide 27 mmol/L (22-29) 02/05/25 18:34 Anion Gap 16.0 (5-19) 02/05/25 18:34 BUN 18 mg/dL (8-23) 02/05/25 18:34 Creatinine 1.0 mg/dL (0.7-1.2) 02/05/25 18:34 GFR Calculation 74.5 mL/min (90-130) L 02/05/25 18:34 Glucose 102 mg/dL (65-115) 02/05/25 18:34 Calculated Osmolality 286 mOsm/kg (285-295) 02/05/25 18:34 Calcium 9.1 mg/dL (8.5-10.5) 02/05/25 18:34 Total Bilirubin 0.2 mg/dL (0.15-1.2) 02/05/25 18:34 AST 14 U/L (0-40) 02/05/25 18:34 ALT 12 U/L (0-41) 02/05/25 18:34 Alkaline Phosphatase 83 U/L (40-130) 02/05/25 18:34 Troponin T Baseline < 6 ng/L (0-15) 02/05/25 18:34 Total Protein 6.7 g/dL (6.6-8.7) 02/05/25 18:34 Albumin 4.2 g/dL (3.5-5.2) 02/05/25 18:34 Globulin 2.5 g/dL (1.3-4.6) 02/05/25 18:34 All radiology interpretation(s) finalized by discharge EKG Data EKG dated February 05, 2025 at 6:36 PM and interpreted by me at 6:37 PM shows sinus rhythm, ventricular rate of 70 bpm, no ST segment elevation: Computer generated interpretation: Chest CTA 02/05/25 17:28 IMPRESSION: 1. No definitive radiographic evidence of pulmonary embolism or right heart strain. 2. Aortic atherosclerosis. Chest X-Ray 02/05/25 17:28 IMPRESSION: No acute findings. If there is concern for pulmonary embolism, recommend obtaining CTA of the chest. Head CT 02/05/25 17:28 IMPRESSION: No acute intracranial hemorrhage. Venous Duplex 02/05/25 17:28 IMPRESSION: No evidence of deep vein thrombosis in the left lower extremity. Discharge Plan Discharge Patient Disposition: Home Clinical Impression: Dizziness Condition: Stable Prescriptions: No Action aspirin 81 mg tablet,chewable 81 mg PO DAILY (DME) Medial Certified Diabetes Educator Brace See Rx Instructions .Route .MEDSUPPLY Qty: 1 0RF Rx Instructions: As directed docusate sodium 100 mg capsule 100 mg PO BID PRN (Reason: constipation) 90 Days Qty: 180 2RF baclofen 20 mg tablet 20 mg PO BID PRN (Reason: muscle spasm) 90 Days Qty: 180 2RF lamotrigine [Lamictal] 100 mg tablet 100 mg PO DAILY 90 Days Qty: 90 2RF lovastatin 20 mg tablet 20 mg PO BEDTIME 90 Days Qty: 90 1RF omeprazole 40 mg capsule,delayed release(DR/EC) 40 mg PO DAILY 90 Days Qty: 90 2RF torsemide 20 mg tablet 40 mg PO DAILY 90 Days Qty: 180 2RF potassium chloride 10 mEq capsule, extended release 20 meq PO DAILY 90 Days Qty: 180 2RF lisinopril 20 mg tablet 20 mg PO DAILY 90 Days Qty: 90 2RF diphenhydramine HCl [Benadryl] 25 mg capsule 25 mg PO TID PRN fluticasone propionate [Flonase Allergy Relief] 50 mcg/actuation spray,suspension 2 spray intranasal BID PRN (Reason: Allergy Symptoms) Qty: 16 5RF Rx Instructions: administer into each nostril loratadine 10 mg tablet 10 mg PO DAILY Qty: 30 5RF trazodone 50 mg tablet 50 mg PO .at bedtime Qty: 30 2RF polyethylene glycol 3350 17 gram/dose powder 17 g PO DAILY Qty: 850 11RF (DME) Blood Glucose Test Strip See Rx Instructions .Route Qty: 50 11RF Rx Instructions: Use to test blood sugar once daily methocarbamol 500 mg tablet 500 mg PO TID Qty: 21 0RF (DME) blood-glucose meter Kit See Rx Instructions .Route Qty: 1 0RF Rx Instructions: Use to test blood sugar once daily (DME) lancets 32 gauge misc See Rx Instructions .Route Qty: 100 5RF Rx Instructions: Use to test blood sugar once daily tirzepatide 10 mg/0.5 mL pen injector 10 mg SUBCUT .WEEKLY 28 Days Qty: 2 6RF Discharge Orders: Discharge ED (Routine); Ordered 02/05/25 Ordered By: Yoni Borges Referrals: Iris Vance MD [Primary Care Provider, [facility]] Patient Instructions: Patient Portal & Romina Instructions, Dizziness (ED) Print Language: British Coding Level of Care Code ED Continuing Education Instructor for Juliann Iniguez
[2025-02-05 17:48] VITALS: BP 126/80; PULSE 81; O2SAT 96
[2025-02-05 18:47] LABS: Hematocrit 39.7 % (37-53); Hemoglobin 12.80 g/dL (11.27-16.99); Mean Corpuscular HGB Conc 32.2 g/dL (30-55); Mean Corpuscular Hemoglobin 28.7 pg (27-33); Mean Corpuscular Volume 89.0 fl (82-101); Nucleated Red Blood Cells % 0 %; Platelet Count 239 10^3/cmm (157-399); Red Blood Count 4.46 10^6/uL (3.85-5.65); White Blood Count 7.97 10^3/uL (3.29-11.43)
[2025-02-05 19:00] VITALS: BP 145/86; PULSE 84; O2SAT 96
[2025-02-05 19:07] LABS: Troponin(5th) Baseline < 6 ng/L (0-15)
--- NOTE | 2025-02-05 19:26 | ECG_ITS ---
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 Measurements Intervals [place] Rate: 72 P: 59 [place]: 189 QRS: 64 QRSD: 102 T: 62 QT: 375 QTc: 411 Interpretive Statements SINUS RHYTHM Compared to ECG 02/05/2025 18:36:32 No significant changes Electronically Signed On 02-05-2025 22:50:07 CDT by Butch Bernardo M.D. [email or web address]
[2025-02-05] MEDS: iohexol 350 mg/mL 500 mL Btl (per mL) IV (19:38)
[2025-02-05 19:45] LABS: Alanine Aminotransferase 12 U/L (0-41); Albumin Level 4.2 g/dL (3.5-5.2); Alkaline Phosphatase 83 U/L (40-130); Anion Gap 16.0 (5-19); Aspartate Amino Transferase 14 U/L (0-40); Blood Urea Nitrogen 18 mg/dL (8-23); Calcium 9.1 mg/dL (8.5-10.5); Carbon Dioxide 27 mmol/L (22-29); Chloride 98 mmol/L (98-107); Creatinine Clr Calc Pharmacy 88.9258; Globulin 2.5 g/dL (1.3-4.6); Glucose 102 mg/dL (65-115); Osmolality Calculated 286 mOsm/kg (285-295); Potassium 4.0 mmol/L (3.5-5.1); Sodium 137 mmol/L (136-145); Total Protein 6.7 g/dL (6.6-8.7)
[2025-02-05 19:53] VITALS: PULSE 75; O2SAT 96
--- NOTE | 2025-02-05 20:54 | W.ED.GENADLT ---
HPI - General Adult General: Chief complaint: General Medical Stated complaint: dizzy weak and headach and high blood pressure Time Seen by Provider: 02/05/25 17:15 Related Data Home Medications ?Medication ?Instructions ?Recorded ?Confirmed aspirin 81 mg chewable tablet 81 mg PO DAILY 04/03/21 01/06/25 diphenhydramine HCl 25 mg capsule 25 mg PO TID PRN 10/12/24 01/06/25 (Benadryl) Previous Rx's ?Medication ?Instructions ?Recorded polyethylene glycol 3350 17 17 g PO DAILY #850 grams 09/13/22 gram/dose oral powder blood-glucose meter #1 ea 01/29/23 lancets 32 gauge #100 ea 01/29/23 Medial Supervisor [place] Brace #1 ea 02/28/23 blood sugar diagnostic (Blood #50 ea 02/26/24 Glucose Test strips) baclofen 20 mg tablet 20 mg PO BID PRN muscle spasm 90 08/24/24 days #180 tabs docusate sodium 100 mg capsule 100 mg PO BID PRN constipation 90 08/24/24 days #180 caps lamotrigine 100 mg tablet 100 mg PO DAILY 90 days #90 tabs 08/24/24 (Lamictal) lisinopril 20 mg tablet 20 mg PO DAILY 90 days #90 tabs 08/24/24 lovastatin 20 mg tablet 20 mg PO BEDTIME 90 days #90 tabs 08/24/24 omeprazole 40 mg capsule,delayed 40 mg PO DAILY 90 days #90 caps 08/24/24 release potassium chloride 10 mEq 20 meq (2 x 10 mEq) PO DAILY 90 08/24/24 capsule,extended release days #180 caps torsemide 20 mg tablet 40 mg (2 x 20 mg) PO DAILY 90 days 08/24/24 #180 tabs methocarbamol 500 mg tablet 500 mg PO TID #21 tabs 08/25/24 fluticasone propionate 50 2 spray intranasal BID PRN Allergy 10/12/24 mcg/actuation nasal Symptoms #16 grams spray,suspension (Flonase Allergy Relief) loratadine 10 mg tablet 10 mg PO DAILY #30 tabs 10/12/24 trazodone 50 mg tablet 50 mg PO .at bedtime #30 tabs 11/04/24 tirzepatide 10 mg/0.5 mL 10 mg (0.5 mL) SUBCUT .WEEKLY 01/21/25 subcutaneous pen injector days #2 mL Allergies Allergy/AdvReac Type Severity Reaction Status Date / Time adhesive tape Allergy hives Verified 01/06/25 10:35 Penicillins Allergy hives Verified 01/06/25 10:35 glipizide AdvReac Mild nausea Verified 01/06/25 10:35 [facility] ED PFSH: Medical History (Updated 02/05/25 @ 20:50 by Yoni Bogres MD) Major depressive disorder, recurrent, mild Psychiatric care Surgical History S/P laparoscopic cholecystectomy Hx of hernia repair Umbilical Hx of fracture of leg Hx of carpal tunnel repair bilateral Family History Mother Diabetes Father Cancer Social History Smoking and tobacco/nicotine status: former use of tobacco/nicotine Alcohol intake: current Alcohol intake frequency: holidays/special occasions only Marital status: Course Vital Signs: Vital signs: Vital Signs Temperature 98.3 F 02/05/25 15:15 Pulse Rate 75 02/05/25 19:53 Respiratory Rate 17 02/05/25 15:15 Blood Pressure 145/86 02/05/25 19:00 Pulse Oximetry 96 02/05/25 19:53 Oxygen Delivery Me thod Room Air 02/05/25 19:53 MDM - General Adult Lab Data 02/05/25 18:34 02/05/25 18:34 Radiology Impressions Chest CTA 02/05/25 17:28 IMPRESSION: 1. No definitive radiographic evidence of pulmonary embolism or right heart strain. 2. Aortic atherosclerosis. Chest X-Ray 02/05/25 17:28 IMPRESSION: No acute findings. If there is concern for pulmonary embolism, recommend obtaining CTA of the chest. Head CT 02/05/25 17:28 IMPRESSION: No acute intracranial hemorrhage. Venous Duplex 02/05/25 17:28 IMPRESSION: No evidence of deep vein thrombosis in the left lower extremity. Laboratory Results WBC 7.97 10^3/uL (3.29-11.43) 02/05/25 18:34 RBC 4.46 10^6/uL (3.85-5.65) 02/05/25 18:34 Hgb 12.80 g/dL (11.27-16.99) 02/05/25 18:34 Hct 39.7 % (37-53) 02/05/25 18:34 MCV 89.0 fl (82-101) 02/05/25 18:34 MCH 28.7 pg (27-33) 02/05/25 18:34 MCHC 32.2 g/dL (30-55) 02/05/25 18:34 RDW 14.7 % (12.1-15.1) 02/05/25 18:34 Plt Count 239 10^3/cmm (157-399) 02/05/25 18:34 MPV 9.8 fL (7.4-10.4) 02/05/25 18:34 Neut % (Auto) 58.5 % 02/05/25 18:34 Lymph % (Auto) 24.0 % 02/05/25 18:34 [place] % (Auto) 9.8 % 02/05/25 18:34 Eos % (Auto) 6.6 % 02/05/25 18:34 Baso % (Auto) 0.8 % 02/05/25 18:34 Neut # (Auto) 4.67 10^3/uL (1.8-7.7) 02/05/25 18:34 Lymph # (Auto) 1.9 10^3/uL (0.8-4.8) 02/05/25 18:34 [place] # (Auto) 0.8 10^3/uL (0.2-0.9) 02/05/25 18:34 Eos # (Auto) 0.5 10^3/uL (0.0-0.8) 02/05/25 18:34 Baso # (Auto) 0.1 10^3/uL (0.0-0.1) 02/05/25 18:34 Nucleated RBC % (auto) 0 % 02/05/25 18:34 Nucleated RBCs # 0.0 /100WBC 02/05/25 18:34 Sodium 137 mmol/L (136-145) 02/05/25 18:34 Potassium 4.0 mmol/L (3.5-5.1) 02/05/25 18:34 Chloride 98 mmol/L (98-107) 02/05/25 18:34 Carbon Dioxide 27 mmol/L (22-29) 02/05/25 18:34 Anion Gap 16.0 (5-19) 02/05/25 18:34 BUN 18 mg/dL (8-23) 02/05/25 18:34 Creatinine 1.0 mg/dL (0.7-1.2) 02/05/25 18:34 GFR Calculation 74.5 mL/min (90-130) L 02/05/25 18:34 Glucose 102 mg/dL (65-115) 02/05/25 18:34 Calculated Osmolality 286 mOsm/kg (285-295) 02/05/25 18:34 Calcium 9.1 mg/dL (8.5-10.5) 02/05/25 18:34 Total Bilirubin 0.2 mg/dL (0.15-1.2) 02/05/25 18:34 AST 14 U/L (0-40) 02/05/25 18:34 ALT 12 U/L (0-41) 02/05/25 18:34 Alkaline Phosphatase 83 U/L (40-130) 02/05/25 18:34 Troponin T Baseline < 6 ng/L (0-15) 02/05/25 18:34 Total Protein 6.7 g/dL (6.6-8.7) 02/05/25 18:34 Albumin 4.2 g/dL (3.5-5.2) 02/05/25 18:34 Globulin 2.5 g/dL (1.3-4.6) 02/05/25 18:34 Discharge Plan Discharge Patient Disposition: Home Clinical Impression: Dizziness Condition: Stable Prescriptions: No Action aspirin 81 mg tablet,chewable 81 mg PO DAILY (DME) [facility] Supervisor [place] Brace See Rx Instructions .Route .MEDSUPPLY Qty: 1 0RF Rx Instructions: As directed docusate sodium 100 mg capsule 100 mg PO BID PRN (Reason: constipation) 90 Days Qty: 180 2RF baclofen 20 mg tablet 20 mg PO BID PRN (Reason: muscle spasm) 90 Days Qty: 180 2RF lamotrigine [Lamictal] 100 mg tablet 100 mg PO DAILY 90 Days Qty: 90 2RF lovastatin 20 mg tablet 20 mg PO BEDTIME 90 Days Qty: 90 1RF omeprazole 40 mg capsule,delayed release(DR/EC) 40 mg PO DAILY 90 Days Qty: 90 2RF torsemide 20 mg tablet 40 mg PO DAILY 90 Days Qty: 180 2RF potassium chloride 10 mEq capsule, extended release 20 meq PO DAILY 90 Days Qty: 180 2RF lisinopril 20 mg tablet 20 mg PO DAILY 90 Days Qty: 90 2RF diphenhydramine HCl [Benadryl] 25 mg capsule 25 mg PO TID PRN fluticasone propionate [Flonase Allergy Relief] 50 mcg/actuation spray,suspension 2 spray intranasal BID PRN (Reason: Allergy Symptoms) Qty: 16 5RF Rx Instructions: administer into each nostril loratadine 10 mg tablet 10 mg PO DAILY Qty: 30 5RF trazodone 50 mg tablet 50 mg PO .at bedtime Qty: 30 2RF polyethylene glycol 3350 17 gram/dose powder 17 g PO DAILY Qty: 850 11RF (DME) Blood Glucose Test Strip See Rx Instructions .Route Qty: 50 11RF Rx Instructions: Use to test blood sugar once daily methocarbamol 500 mg tablet 500 mg PO TID Qty: 21 0RF (DME) blood-glucose meter Kit See Rx Instructions .Route Qty: 1 0RF Rx Instructions: Use to test blood sugar once daily (DME) lancets 32 gauge misc See Rx Instructions .Route Qty: 100 5RF Rx Instructions: Use to test blood sugar once daily tirzepatide 10 mg/0.5 mL pen injector 10 mg SUBCUT .WEEKLY 28 Days Qty: 2 6RF Discharge Orders: Discharge ED (Routine); Ordered 02/05/25 Ordered By: Yoni Borges Referrals: Iris Vance MD [Primary Care Provider, [facility]] Patient Instructions: Dizziness (ED), Patient Portal & Romina Instructions Print Language: Omani Coding Level of Care Code ED Rn Labor Delivery for Juliann Iniguez
[2025-02-05 21:26] VITALS: BP 149/84; PULSE 75; O2SAT 94
[2025-02-05 21:45] LABS: Troponin 5 2HR 11.39 ng/L (0-15); Troponin 5 2HR Delta 5.39001 ABS# (0-10)
== END 2025-02-05 21:27 | disposition home or self-care (01) ==
PROVIDERS: Emergency Provider Emergency Medicine; PCP Family Medicine
DX: R42 Dizziness and giddiness (principal); R60.0 Localized edema; Z87.891 Personal history of nicotine dependence; Z79.82 Long term (current) use of aspirin
CPT/HCPCS: 36415; 70450; 71045; 71275; 80053; 84484; 85025; 93005; 93971; 96361; 96374; 99285; J1885; J7040

== ENCOUNTER → 2025-02-16 13:37 | Outpatient (BNVA) | payer MEDICARE, SELFPAY ==
[2024-03-05 13:00] VITALS: BP 149/86; BMI 38.0
== END ==
PROVIDERS: PCP Family Medicine; Visit Provider Family Medicine
DX: E11.9 Type 2 diabetes mellitus without complications (principal); I10 Essential (primary) hypertension; E87.6 Hypokalemia; Z12.5 Encounter for screening for malignant neoplasm of prostate; M54.50 Low back pain, unspecified; J32.9 Chronic sinusitis, unspecified; K59.04 Chronic idiopathic constipation; F41.1 Generalized anxiety disorder; F33.0 Major depressive disorder, recurrent, mild; K21.9 Gastro-esophageal reflux disease without esophagitis; R60.0 Localized edema; F51.05 Insomnia due to other mental disorder; F99 Mental disorder, not otherwise specified; G47.33 Obstructive sleep apnea (adult) (pediatric); G47.10 Hypersomnia, unspecified; F33.1 Major depressive disorder, recurrent, moderate
CPT/HCPCS: 80048; 80061; 83036; G0103

== ENCOUNTER → 2025-02-24 14:21 | Outpatient (BNVA) | payer MEDICARE, SELFPAY ==
[2024-03-05 13:00] VITALS: BP 149/86; BMI 38.0
== END ==
PROVIDERS: PCP Family Medicine; Visit Provider Family Medicine
DX: R68.89 Other general symptoms and signs (principal); Z20.822 Contact with and (suspected) exposure to COVID-19; R05.9 Cough, unspecified
CPT/HCPCS: 87400; 87426

== ENCOUNTER 2025-03-01 16:19 | Outpatient (CLI) | payer MEDICARE, SELFPAY ==
[2024-03-05 13:00] VITALS: BP 149/86; BMI 38.0
== END 2025-03-01 16:20 | disposition home or self-care (01) ==
LOC: SLEEP 16:22
PROVIDERS: Family Provider Family Medicine; PCP Family Medicine; Visit Provider Internal Medicine Pulmonary Disease
DX: G47.33 Obstructive sleep apnea (adult) (pediatric) (principal)
CPT/HCPCS: G0399

== ENCOUNTER → 2025-05-31 10:56 | Outpatient (BNVA) | payer MEDICARE, SELFPAY ==
[2024-03-05 13:00] VITALS: BP 149/86; BMI 38.0
== END ==
PROVIDERS: Family Provider Family Medicine; PCP Family Medicine; Visit Provider Family Medicine
DX: E11.9 Type 2 diabetes mellitus without complications (principal)
CPT/HCPCS: 80048; 83036

== ENCOUNTER 2025-06-08 10:35 | Outpatient (CLI) | payer MEDICARE, SELFPAY ==
[2024-03-05 13:00] VITALS: BP 149/86; BMI 38.0
--- NOTE | 2025-06-08 10:45 | XR_ITS ---
WS: [id number] Lumbar spine, 6 views including both obliques and lateral views in flexion, extension and neutral position, 06/08/2025 Clinical Data: LUMBOSACRAL SPONDYLOSIS WITH RADICULOPATHY Comparison: Lumbar spine, 09/04/2022 Findings: No compression fractures or subluxation is seen. There is disc narrowing at L4- L5 and L5-S1. The oblique images show no spondylolysis. The transverse processes and SI joints are normal. No instability occurs on flexion or extension. There is calcification in the wall of the abdominal aorta but no aneurysm. There are right upper quadrant cholecystectomy clips. XR/XR lumbar spine 6V w f/e [id number] Impression: 1. Degenerative disc narrowing at L4-L5 and L5-S1. 2. No spondylolysis on oblique images. 3. No instability on flexion or extension.
--- NOTE | 2025-06-08 10:46 | XR_ITS ---
WS: [id number] Cervical spine, 6 views including both obliques and lateral views in flexion, extension and neutral position, 06/08/2025 Clinical Data: CERVICAL SPONDYLOSIS Comparison: None. Findings: No compression fractures are seen. There is disc narrowing at C5-C6 and C6-C7 with accompanying osteophytes. On flexion and extension there is no instability. There the oblique imaging demonstrates foraminal narrowing bilaterally at C4-C5, C5-C6 and C6-C7. There is no prevertebral soft tissue swelling. The odontoid is unremarkable. The lung apices are normal. There are calcifications at the carotid bifurcations. XR/XR cervical spine min 6V [id number] Impression: 1. Disc narrowing at C5-C6 and C6/C7 with accompanying osteophytes. 2. No instability on flexion or extension. 3. Bilateral foraminal narrowing at C4-C5 through C6-C7.
== END 2025-06-08 10:36 | disposition home or self-care (01) ==
PROVIDERS: Family Provider Family Medicine; PCP Family Medicine; Visit Provider Student in an Organized Health Care Education/Training Program
DX: M47.27 Other spondylosis with radiculopathy, lumbosacral region (principal); M47.812 Spondylosis without myelopathy or radiculopathy, cervical region; M48.02 Spinal stenosis, cervical region; M48.07 Spinal stenosis, lumbosacral region
CPT/HCPCS: 72052; 72114